=== PATIENT | male | born 1975 | race Caucasian/White ===

== ENCOUNTER → 2017-02-07 | Outpatient (CLI) | payer MEDICARE, MEDICAID ==
[~2017-02-07] MED LIST: MULTCAP11 PO; SELE100T6 PO; VITMTA PO; [UNRECOGNIZED DRUG - OTHER]; [UNRECOGNIZED DRUG - OTHER]; [UNRECOGNIZED DRUG - OTHER]
[2017-02-07 10:59] LABS: CREATININE CLEARANCE, URINE 145.6 ML/MIN (85-125); CREATININE, SERUM 0.8 MG/DL (0.6-1.3)
== END ==
LOC: M LAB 08:39
PROVIDERS: ATTEND Internal Medicine Advanced Heart Failure and Transplant Cardiology
DX: I50.9 Heart failure, unspecified (principal)

== ENCOUNTER 2017-03-05 19:47 | Emergency (ER) | payer MEDICARE, MEDICAID ==
[~2017-03-05] VITALS: Ht 190.5 cm; Wt 91.0 kg
[2017-03-05] MEDS ORDERED: [UNRECOGNIZED DRUG - OTHER] (20:04)
[2017-03-05] MEDS ORDERED: [UNRECOGNIZED DRUG - OTHER] (20:04)
[2017-03-05] MEDS ORDERED: MULTCAP11 PO (20:04)
[2017-03-05] MEDS ORDERED: SELE100T6 PO (20:04)
[2017-03-05] MEDS ORDERED: [UNRECOGNIZED DRUG - OTHER] (20:04)
[2017-03-05 21:09] LABS: BASO % 0.3 % (0.0-1.0); EOS # 0.1 10^3/uL (0.0-0.50); EOS % 1.9 % (0.0-3.0); IMMATURE GRANULOCYTE % 0.6 % (0-0); LYMPH # 0.3 10^3/uL (1.5-4.5); LYMPH % 3.7 % (24.0-44.0); MEAN CORPUSCULAR HEMOGLOBIN 22.1 pg (27.0-33.0); MEAN CORPUSCULAR HGB CONC 29.9 g/dl (32.0-36.5); MONO # 0.4 10^3/uL (0.0-0.8); NEUTROPHILS # 6.3 10^3/uL (1.8-7.7); NEUTROPHILS % 87.5 % (36.0-66.0); PLATELET COUNT, AUTOMATED 158 10^3/uL (150-450); WHITE BLOOD COUNT 7.2 10^3/uL (4.0-10.0)
[2017-03-05 21:11] LABS: ADD MORPHOLOGY? YES; INR 1.08; MEAN CORPUSCULAR VOLUME 73.9 fl (80.0-96.0)
[2017-03-05] MEDS ORDERED: ASPIRIN 81 MG CHEW TABLET PO ONE (21:15)
[2017-03-05 21:20] LABS: ALBUMIN 2.3 GM/DL (3.2-5.2); ALBUMIN/GLOBULIN RATIO 1.05 (1.00-1.93); ALKALINE PHOSPHATASE 91 U/L (45-117); ALT/SGPT 34 U/L (12-78); ANION GAP 6 MEQ/L (8-16); AST/SGOT 49 U/L (15-37); BILIRUBIN,DIRECT 0.1 MG/DL (0.0-0.2); BILIRUBIN,TOTAL 0.4 MG/DL (0.2-1.0); BLOOD UREA NITROGEN 16 MG/DL (7-18); CALCIUM LEVEL 9.8 MG/DL (8.5-10.1); CARBON DIOXIDE LEVEL 26 MEQ/L (21-32); CHLORIDE LEVEL 111 MEQ/L (98-107); CREATININE FOR GFR 0.78 MG/DL (0.70-1.30); GLOMERULAR FILTRATION RATE > 60.0 (>60); GLUCOSE, FASTING 99 MG/DL (70-105); POTASSIUM SERUM 3.8 MEQ/L (3.5-5.1); SODIUM LEVEL 143 MEQ/L (136-145); TOTAL PROTEIN 4.5 GM/DL (6.4-8.2)
[2017-03-05 21:52] LABS: MICROCYTOSIS 2+
--- NOTE | 2017-03-05 22:00 | REPUSA ---
CLINICAL HISTORY: CP. COMMENTS: There is no evidence of active pleural or pulmonary parenchymal abnormality. Pacemaker is noted in the right chest wall. Surgical clips are present in the anterior mediastinum. The cardiac silhouette is enlarged. The mediastinum and pulmonary vessels appear normal. Aorta is tor tuous. Degenerative changes are noted in the thoracic spine. IMPRESSION: No evidence of acute pulmonary pathology. Thank you for your kind referral of this patient.
[2017-03-05 22:04] LABS: FREE T4 1.38 NG/DL (0.76-1.46); MAGNESIUM LEVEL 1.9 MG/DL (1.8-2.4); PHOSPHORUS LEVEL 1.8 MG/DL (2.5-4.9)
[2017-03-05] MEDS ORDERED: VITMTA PO (23:32)
[2017-03-06 01:58] VITALS: BP 118/74
--- NOTE | 2017-03-06 03:03 | ECGEPIP ---
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
--- NOTE | 2017-03-06 03:05 | ECGEPIP ---
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
--- NOTE | 2017-03-06 05:29 | CR ---
DATE OF CONSULTATION: 03/06/2017 REFERRING PHYSICIANS: Dr. Odilon Horn and Dr. Newton Bain, emergency room provider. REASON FOR CONSULTATION: Chest pain. 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 Gomez at [facility], phone number [phone]. Initially presented to the emergency room with acute onset at 7 p.m. of chest pain, substernal, sharp, lasting 45 minutes, presented to the emergency department (ED). Electrocardiogram (EKG) shows paced rhythm. Emergency room provider, Dr. Bain, has discussed the case with the patient's human service worker at [place], Dr. Gomez, who would like the patient to be observed overnight with repeat cardiac enzymes, so if second set of cardiac enzymes increases, we will transfer the patient to [place]. If enzymes are normal, will reconsider in the morning to see what additional recommendation is needed. Second set of cardiac enzymes was done in the emergency room at 12:04 midnight. Subsequently, request was made by the emergency room provider to admit the patient overnight for further cardiac enzymes and telemetry monitoring. Subsequently, I have seen the patient, telling the patient that the emergency room provider has requested the patient to be admitted for observation. Upon mentioning of the fact of admission, the patient was strongly resistant, stating that he does not believe that [facility] is adequate to care of his condition and wanted me to call the patient's human service worker, Dr. Gomez, to confirm because the patient reported that Dr. Gomez is comfortable with him going home to followup with Dr. Gomez for repeat labs. Subsequently, Dr. Gomez with number above was contacted for the third time tonight. Upon mentioning that it was the patient who mentioned that Dr. Gomez would be comfortable with discharging the patient for further monitoring and repeat labs with Dr. Gomez as outpatient, Dr. Gomez disagreed, stating that this was not what was agreed upon earlier. It is his recommendation that the patient is monitored overnight. If cardiac enzymes increase, will recommend patient to be transferred to [facility]. If cardiac enzymes remain the same, he will decide in the morning as to what is the next course of action. Subsequently, confirmation of Dr. Gomez's recommendation was disclosed to the patient. Upon disclosure, the patient is disagreeable to the management, stating that he can monitor himself with his pacemaker at home. It is all electronic and automatic, and he does not want to stay here. Subsequently the patient wanted to leave against medical advice. He is aware of the potential for decompensation, acute myocardial infarction heart attack and possible by leaving against medical advice. If patient stays, we will be able to monitor him closely and repeat cardiac enzymes to see if he will need to be transferred or not. Unfortunately, the patient disagrees and would like to leave the hospital against medical advice. No physical examination was done because the patient would like to leave against medical advice. Case was discussed with Dr. Gomez and Dr. Odilon Horn and the emergency room provider. The patient subsequently left.
== END 2017-03-06 02:00 | disposition left against medical advice (07) ==
LOC: M ED 19:47 → EDBD 19:47 → EDUNIT# 19:47 → M ED 03-06 02:00
DX: R07.9 Chest pain, unspecified (principal); I50.9 Heart failure, unspecified; Z95.0 Presence of cardiac pacemaker; Q25.6 Stenosis of pulmonary artery; Z53.21 Procedure and treatment not carried out due to patient leaving prior to being seen by health care provider; Z79.899 Other long term (current) drug therapy; Z88.1 Allergy status to other antibiotic agents

== ENCOUNTER → 2017-03-06 | Outpatient (CLI) | payer MEDICARE, MEDICAID | LOC: M LAB 11:55 | PROVIDERS: ATTEND Internal Medicine Cardiovascular Disease | DX: I50.9 Heart failure, unspecified (principal) ==

== ENCOUNTER → 2017-08-27 | Outpatient (CLI) | payer MEDICARE, MEDICAID ==
[2017-08-27 18:07] LABS: ALKALINE PHOSPHATASE 50 U/L (45-117); ALT/SGPT 17 U/L (12-78); AST/SGOT 17 U/L (7-37); BILIRUBIN,TOTAL 0.4 MG/DL (0.2-1.0); CALCIUM LEVEL 9.3 MG/DL (8.5-10.1); CARBON DIOXIDE LEVEL 29 MEQ/L (21-32); CHLORIDE LEVEL 111 MEQ/L (98-107); CREATININE FOR GFR 0.82 MG/DL (0.70-1.30); GLUCOSE, FASTING 79 MG/DL (70-100); MAGNESIUM LEVEL 1.9 MG/DL (1.8-2.4); POTASSIUM SERUM 4.1 MEQ/L (3.5-5.1); SODIUM LEVEL 144 MEQ/L (136-145); TOTAL PROTEIN 4.4 GM/DL (6.4-8.2)
[2017-08-27 18:25] LABS: BLOOD UREA NITROGEN 15 MG/DL (7-18)
[2017-08-28 22:28] LABS: ALBUMIN/GLOBULIN RATIO 0.83 (1.00-1.93); ANION GAP 4 MEQ/L (8-16)
== END ==
LOC: M LAB 16:51
DX: I50.9 Heart failure, unspecified (principal); K90.89 Other intestinal malabsorption; Q20.5 Discordant atrioventricular connection
CPT/HCPCS: 83735

== ENCOUNTER → 2018-02-03 | Outpatient (CLI) | payer MEDICARE, MEDICAID ==
[2018-02-03 19:27] LABS: ANION GAP 7 MEQ/L (8-16); BLOOD UREA NITROGEN 25 MG/DL (7-18); CARBON DIOXIDE LEVEL 27 MEQ/L (21-32); CHLORIDE LEVEL 107 MEQ/L (98-107); CREATININE FOR GFR 0.99 MG/DL (0.70-1.30); GLOMERULAR FILTRATION RATE > 60.0 (>60); GLUCOSE, FASTING 84 MG/DL (70-100); POTASSIUM SERUM 4.9 MEQ/L (3.5-5.1); SODIUM LEVEL 141 MEQ/L (136-145)
== END ==
LOC: M LAB 16:47
DX: Z98.890 Other specified postprocedural states (principal)
CPT/HCPCS: 80048

== ENCOUNTER → 2018-04-30 | Outpatient (CLI) | payer MEDICARE, MEDICAID ==
[2018-04-30 15:11] LABS: ANION GAP 8 MEQ/L (8-16); BLOOD UREA NITROGEN 23 MG/DL (7-18); CALCIUM LEVEL 10.6 MG/DL (8.5-10.1); CARBON DIOXIDE LEVEL 28 MEQ/L (21-32); CHLORIDE LEVEL 104 MEQ/L (98-107); CREATININE FOR GFR 1.24 MG/DL (0.70-1.30); GLOMERULAR FILTRATION RATE > 60.0 (>60); GLUCOSE, FASTING 107 MG/DL (70-100); SODIUM LEVEL 140 MEQ/L (136-145)
== END ==
LOC: M LAB 14:19
DX: Z98.890 Other specified postprocedural states (principal)
CPT/HCPCS: 80048

== ENCOUNTER 2019-02-03 20:38 | Inpatient (IN) | payer MEDICARE, MEDICAID ==
[~2019-02-03] VITALS: Ht 190.5 cm; Wt 95.9 kg
[2019-02-03 21:44] LABS: VENOUS BASE EXCESS -1.7 (-2.0-2.0); VENOUS O2 SATURATION 90.1 % (60.0-80.0); VENOUS PARTIAL PRESSURE O2 55.8 mmHg (30.0-50.0); VENOUS PH 7.449 UNITS (7.330-7.430); VENOUS STANDARD HCO3 22.8 MEQ/L
[2019-02-03 21:47] LABS: BASO % 0.2 % (0.0-1.0); EOS % 0.1 % (0.0-3.0); HEMATOCRIT 46.7 % (42.0-52.0); LYMPH # 0.4 10^3/uL (1.5-5.0); LYMPH % 3.6 % (24.0-44.0); MEAN CORPUSCULAR HEMOGLOBIN 29.5 pg (27.0-33.0); MEAN CORPUSCULAR HGB CONC 34.3 g/dl (32.0-36.5); MONO # 0.6 10^3/uL (0.0-0.8); MONO % 5.4 % (0.0-5.0); NEUTROPHILS # 10.6 10^3/uL (1.5-8.5); NEUTROPHILS % 90.2 % (36.0-66.0); PLATELET COUNT, AUTOMATED 128 10^3/uL (150-450); RED BLOOD COUNT 5.43 10^6/uL (4.30-6.10); WHITE BLOOD COUNT 11.7 10^3/uL (4.0-10.0)
[2019-02-03] MEDS ORDERED: ACETAMINOPHEN TAB 650MG DOSE (2X325MG) PO ONE (22:15)
[2019-02-03 22:27] LABS: ALBUMIN 2.5 GM/DL (3.2-5.2); ALT/SGPT 25 U/L (12-78); BILIRUBIN,DIRECT 0.3 MG/DL (0.0-0.2); BILIRUBIN,TOTAL 0.9 MG/DL (0.2-1.0); BLOOD UREA NITROGEN 22 MG/DL (7-18); CARBON DIOXIDE LEVEL 23 MEQ/L (21-32); CHLORIDE LEVEL 107 MEQ/L (98-107); CK-MB VALUE MASS 1.1 NG/ML (<3.6); CPK CREATINE PHOSPHOKINASE 262 U/L (39-308); CREATININE FOR GFR 1.07 MG/DL (0.70-1.30); GLOMERULAR FILTRATION RATE > 60.0 (>60); GLUCOSE, FASTING 124 MG/DL (70-100); MB/CK RELATIVE INDEX 0.42 (< OR =4); NT-PRO BNP 463 PG/ML (<125); POTASSIUM SERUM 3.9 MEQ/L (3.5-5.1); SODIUM LEVEL 140 MEQ/L (136-145); THYROXINE (T4) 8.8 UG/DL (4.5-12.0); TROPONIN I 0.17 NG/ML (< 0.10)
[2019-02-03] MEDS ORDERED: ACETAMINOPHEN 325 MG TAB As Ordered ONE (22:27)
[2019-02-04] VITALS (15 sets, daily range): BP systolic 114–131; BP diastolic 55–69
[2019-02-04] MEDS ORDERED: cefTRIAXone SOD 1 GM in D5W MINI-BAG PLUS 50 ML IV ONE (00:15)
[2019-02-04] MEDS ORDERED: AZITHROMYCIN INJ 500 MG, VIAL MATE ADAPTER 1 EACH in D5W 250 ML IV ONE (00:15)
[2019-02-04] MEDS ORDERED: IBUPROFEN 600 MG TAB PO ONE (00:15)
[2019-02-04] MEDS ORDERED: ACETAMINOPHEN TAB 650MG DOSE (2X325MG) PO PRN (02:00)
--- NOTE | 2019-02-04 02:01 | HPEPDOC ---
General Date of Admission 02/04/19 Date of Service: Feb 04, 2019 Attending Physician: FELI SHORT DO Chief Complaint The patient is a 43-year-old male admitted with a reason for visit of Vomiting. History of Present Illness Patient is 44 years old male with past mental history of congenital heart diseases, pacemaker presented to the hospital with history of cough, fever. Patient stated for past 2 days he has been having increase weakness, shortness of breath and fever up to 102. In emergency room patient was found to have a right lung middle opacity, left lobe opacities on the chest x-ray. On the admission his fever was 103.5, leukocytes count 11.5. Troponin was elevated to 0.17. Patient denied any chest pain, EKG showed paced rhythm. Home Medications Scheduled Losartan Potassium (Losartan Potassium) 25 Mg Tablet, 25 MG PO DAILY, (Reported) Milk Thistle Seed Extract (Milk Thistle) 200 Mg Capsule, 600 MG PO DAILY, (Reported) Multivitamins (Thera M Plus Tablet) 1 Tab Tab, 1 TAB PO DAILY, (Reported) Selenium (Selenium) 100 Mcg Tablet, 300 MCG PO DAILY, (Reported) Spironolactone (Spironolactone) 100 Mg Tablet, 50 MG PO DAILY, (Reported) Torsemide (Torsemide) 20 Mg Tablet, 20 MG PO DAILY, (Reported) Allergies Coded Allergies: vancomycin (Verified Adverse Reaction, Intermediate, Red Man Syndrome, 04/13) Past Medical History Medical History Congenital heart diseases with single ventricle, pulmonary stenosis, pacemaker with epicardial leads Surgical History Heart surgery in his childhood Family History Mother has osteoporosis Social History * Smoker: Denies Alcohol: Denies Drugs: denies A-FIB/CHADSVASC A-FIB History Current/History of A-Fib/PAF?: No Current PO Anticoag Therapy: No Review of Systems Constitutional: Reports: Chills, Fever, Malaise, Weakness, Fatigue Eyes: Denies: Pain, Vision change ENT: Denies: Head Aches, Ear Pain Skin: Denies: Rash, Lesions Pulmonary: Reports: Dyspnea, Cough, Pleuritic Chest Pain Cardiovascular: Denies: Chest Pain, Palpitations, Orthopnea Gastrointestinal: Denies: Nausea, Vomiting, Abdominal Pain Genitourinary: Denies: Dysuria, Frequency Hematologic: Denies: Bruising Endocrine: Denies: Polyphagia Musculoskeletal: Denies: Neck Pain, Back Pain Neurological: Denies: Weakness, Numbness Psych: Reports: Mood Normal Physical Examination General Exam: Positive: Alert, Cooperative Eye Exam: Positive: PERRLA, Conjunctiva & lids normal ENT Exam: Positive: Atraumatic Neck Exam: Positive: Supple; Negative: JVD Chest Exam: Positive: Diminished Heart Exam: Positive: Other ([id number]&[id number]&DDsrcS eries=[id number]&NGnizOjsxwvw=[id number]&DDSopClassUid=[id number]&DDFrameOfRef=&culture=en-[place]) Abdomen Exam: Positive: Normal bowel sounds Extremity Exam: Negative: Clubbing, Cyanosis Skin Exam: Negative: Nl turgor and temperature Neuro Exam: Positive: Cranial Nerves 3-12 NL Psych Exam: Positive: Mental status NL Vital Signs Vital Signs Date Time Temp Pulse Resp B/P (MAP) Pulse Ox O2 Delivery O2 Flow Rate FiO2 02/04/19 01:08 101.2 84 20 124/57 (79) 94 Nasal Cannula 3.0 Laboratory Data Labs 24H Laboratory Tests 2 02/03/19 21:31: Immature Granulocyte % (Auto) 0.5, White Blood Count 11.7H, Red Blood Count 5.43, Hemoglobin 16.0, Hematocrit 46.7, Mean Corpuscular Volume 86.0, Mean Corpuscular Hemoglobin 29.5, Mean Corpuscular Hemoglobin Concent 34.3, Red Cell Distribution Width 13.6, Platelet Count 128L, Neutrophils (%) (Auto) 90.2H, Lymphocytes (%) (Auto) 3.6L, Monocytes (%) (Auto) 5.4H, Eosinophils (%) (Auto) 0.1, Basophils (%) (Auto) 0.2, Neutrophils # (Auto) 10.6H, Lymphocytes # (Auto) 0.4L, Monocytes # (Auto) 0.6, Eosinophils # (Auto) 0.0, Basophils # (Auto) 0.0, Nucleated Red Blood Cells % (auto) 0.0, Blood Gas Bicarbonate Standard 22.8, Venous Blood pH 7.449H, Venous Blood Partial Pressure CO2 31.0L, Venous Blood Partial Pressure O2 55.8H, Venous Blood Total Carbon Dioxide 22.0L, Venous Blood HCO3 21.0L, Venous Blood Oxygen Saturation 90.1H, Venous Blood Base Excess -1.7, Lactic Acid Level 0.9 02/03/19 21:32: Anion Gap 10, Glomerular Filtration Rate > 60.0, Calcium Level 10.0, Aspartate Amino Transf (AST/SGOT) 22, Alanine Aminotransferase (ALT/SGPT) 25, Alkaline Phosphatase 58, Total Bilirubin 0.9, Direct Bilirubin 0.3H, Total Creatine Kinase 262, Creatine Kinase MB 1.1, Creatine Kinase MB Relative Index 0.42, Troponin I 0.17H, OX-Aro-T-Type Natriuretic Peptide 463H, Total Protein 5.0L, Albumin 2.5L, Albumin/Globulin Ratio 1.00, Thyroid Stimulating Hormone (TSH) 1.610, Thyroxine (T4) 8.8 02/03/19 22:37: Urine Color YELLOW, Urine Appearance HAZY, Urine pH 5.0, Urine Specific [place] 1.018, Urine Protein NEGATIVE, Urine Glucose (UA) NEGATIVE, Urine Ketones 1+H, Urine Blood 1+H, Urine Nitrite NEGATIVE, Urine Bilirubin NEGATIVE, Urine Urobilinogen 0.2, Urine Leukocyte Esterase NEGATIVE, Urine WBC (Auto) 1, Urine RBC (Auto) 1, Urine Hyaline Casts (Auto) 0, Urine Bacteria (Auto) NEGATIVE, Urine Squamous Epithelial Cells 0, Urine Mucus (Auto) SMALL, Urine Sperm (Auto) CBC/BMP Laboratory Tests 02/03/19 21:31 Red Blood Count 5.43, Mean Corpuscular Volume 86.0, Mean Corpuscular Hemoglobin 29.5, Mean Corpuscular Hemoglobin Concent 34.3, Red Cell Distribution Width 13.6, Neutrophils (%) (Auto) 90.2 H, Lymphocytes (%) (Auto) 3.6 L, Monocytes (%) (Auto) 5.4 H, Eosinophils (%) (Auto) 0.1, Basophils (%) (Auto) 0.2, Neutrophils # (Auto) 10.6 H, Lymphocytes # (Auto) 0.4 L, Monocytes # (Auto) 0.6, Eosinophils # (Auto) 0.0, Basophils # (Auto) 0.0 02/03/19 21:32 Microbiology Microbiology 02/03/19 Blood Culture, Received Pending 02/03/19 Blood Culture, Received Pending Assessment/Plan Patient is 43 years old male with past mental history of congenital heart diseases, pacemaker presented to the hospital with history of cough, fever. Patient stated for past 2 days he has been having increase weakness, shortness of breath and fever up to 102. In emergency room patient was found to have a right lung middle opacity, left lobe opacities on the chest x-ray. On the admission his fever was 103.5, leukocytes count 11.5. Troponin was elevated to 0.17. Patient denied any chest pain, EKG showed paced rhythm. Problems (1) Pneumonia Status: Acute Problem Text: Most likely a community acquired pneumonia Ceftriaxone IV, azithromycin IV IV fluid Blood culture, sputum culture Pro calcitonin (2) Elevated troponin Problem Text: Most likely demand ischemia. however patient has complicated Hist ory Continue to monitor troponin series EKG showed paced rhythm, patient denies any chest pain Plan / VTE VTE Prophylaxis Ordered?: Yes FELI SHORT DO Feb 04, 2019 02:01
[2019-02-04] MEDS ORDERED: SELE100T PO (02:09)
[2019-02-04] MEDS ORDERED: SPIR100T3 PO (02:09)
[2019-02-04] MEDS ORDERED: RA M200C4 PO (02:09)
[2019-02-04] MEDS ORDERED: LOSA25TA14 PO (02:09)
[2019-02-04] MEDS ORDERED: TORS20TA2 PO (02:09)
--- NOTE | 2019-02-04 03:01 | REPVR ---
EXAM: XR Chest, 1 View EXAM DATE/TIME: 02/03/2019 9:24 PM CLINICAL HISTORY: 43 years old, male; Cough and dyspnea; Additional info: Dyspnea/cough TECHNIQUE: Imaging protocol: XR of the chest Views: 1 view. COMPARISON: CR Chest, 2 view PA, Lat 03/05/2017 9:20 PM FINDINGS: LUNGS and PLEURAL SPACE: The right mid lung field is obscured by pacing device. Lung volumes are low. There is hazy ill-defined opacity at the left lung base, new compared to the prior exam. This could be correlated for infiltrate/pneumonia and/or atelectasis. Clinical correlation and followup imaging is advised, to confirm resolution. Consider proper PA and lateral views for followup if possible. Mild atelectasis and crowding of vasculature seen at the right lung base. No overt pulmonary edema. No evidence of pneumothorax. Small amount of pleural fluid at the left lung base cannot be excluded. MEDIASTINUM: There is no mediastinal shift or widening. CARDIAC SILHOUETTE: Cardiac size is mildly enlarged. BONY THORAX: No acute findings are seen. OTHER: Right-sided pacer device appear similar to the prior exam. IMPRESSION: Newly developed opacity at the left lung base, differential and recommendations discussed above. Other findings discussed above in detail. Electronically signed by: Audi Rabago On 02/04/2019 03:01:14 AM
[2019-02-04 03:06] LABS: CK-MB VALUE MASS 1.2 NG/ML (<3.6); MB/CK RELATIVE INDEX 0.38 (< OR =4); TROPONIN I 0.17 NG/ML (< 0.10)
--- NOTE | 2019-02-04 08:15 | ECGEPIP ---
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
[2019-02-04] MEDS: HEPARIN SOD (PORCINE) 5000 UNITS/ML VIAL SC SCH ×2 (08:45→19:35)
[2019-02-04] MEDS ORDERED: ONDANSETRON 4MG/2ML VIAL (J2405) IV PRN (12:00)
[2019-02-04] MEDS ORDERED: ACETAMINOPHEN 650 MG SUPP PR PRN (12:00)
[2019-02-04] MEDS: ACETAMINOPHEN 500 MG TAB PO PRN ×2 (13:42→21:46)
[2019-02-04] MEDS: cefTRIAXone SOD 1 GM in D5W MINI-BAG PLUS 50 ML IV SCH (23:51)
[2019-02-05] VITALS (9 sets, daily range): BP systolic 107–157; BP diastolic 59–81
[2019-02-05] MEDS ORDERED: AZITHROMYCIN INJ 500 MG, VIAL MATE ADAPTER 1 EACH in D5W 250 ML IV SCH (02:00)
[2019-02-05 05:52] LABS: ALBUMIN 2.2 GM/DL (3.2-5.2); ALT/SGPT 32 U/L (12-78); BILIRUBIN,TOTAL 0.8 MG/DL (0.2-1.0); BLOOD UREA NITROGEN 14 MG/DL (7-18); CALCIUM LEVEL 10.4 MG/DL (8.5-10.1); CARBON DIOXIDE LEVEL 28 MEQ/L (21-32); CHLORIDE LEVEL 107 MEQ/L (98-107); CREATININE FOR GFR 0.96 MG/DL (0.70-1.30); GLOMERULAR FILTRATION RATE > 60.0 (>60); GLUCOSE, FASTING 95 MG/DL (70-100); POTASSIUM SERUM 3.9 MEQ/L (3.5-5.1); SODIUM LEVEL 141 MEQ/L (136-145); TOTAL PROTEIN 5.7 GM/DL (6.4-8.2)
[2019-02-05 07:47] LABS: BASO % 0.3 % (0.0-1.0); EOS # 0.1 10^3/uL (0.0-0.5); EOS % 1.2 % (0.0-3.0); HEMATOCRIT 48.3 % (42.0-52.0); HEMOGLOBIN 15.6 g/dl (13.5-17.5); LYMPH # 0.7 10^3/uL (1.5-5.0); LYMPH % 10.4 % (24.0-44.0); MEAN CORPUSCULAR HEMOGLOBIN 28.8 pg (27.0-33.0); MEAN CORPUSCULAR HGB CONC 32.3 g/dl (32.0-36.5); MEAN CORPUSCULAR VOLUME 89.3 fl (80.0-96.0); MONO # 0.8 10^3/uL (0.0-0.8); MONO % 11.6 % (0.0-5.0); NEUTROPHILS # 5.2 10^3/uL (1.5-8.5); NEUTROPHILS % 76.1 % (36.0-66.0); PLATELET COUNT, AUTOMATED 124 10^3/uL (150-450); RED BLOOD COUNT 5.41 10^6/uL (4.30-6.10); WHITE BLOOD COUNT 6.8 10^3/uL (4.0-10.0)
[2019-02-05] MEDS: ACETAMINOPHEN 500 MG TAB PO PRN (08:11)
[2019-02-05] MEDS: HEPARIN SOD (PORCINE) 5000 UNITS/ML VIAL SC SCH ×2 (08:42→21:42)
[2019-02-05] MEDS: CLOTRIMAZOLE 1% TOPICAL CREAM 30GM TOP SCH ×2 (09:00→21:43)
--- NOTE | 2019-02-05 09:25 | REP ---
Right lower extremity Duplex Doppler venous ultrasound: Real time compression and duplex Doppler interrogation of the right lower extremity deep venous system is performed. The right common femoral, superficial femoral and popliteal veins are fully compressible with transducer pressure and demonstrate normal spontaneous and phasic flow, without evidence of deep venous thrombosis. Impression: No evidence of deep venous thrombosis of the right lower extremity femoral popliteal venous system. Electronically Signed by Jonas Holt MD 02/05/2019 09:16 A
--- NOTE | 2019-02-05 12:20 | IPNPDOC ---
Subjective Date Seen The patient was seen on 02/05/19. Subjective Chief Complaint/HPI No further spikes of fever overnight, No nausea or dry heaves, feeling better, ate breakfast and dinner. His right leg is red and warm to touch but not painful. No cough or phlegm, no abdominal pain or swelling. Objective Physical Examination General Exam: Positive: Alert, Cooperative, No Acute Distress Eye Exam: Positive: PERRLA, Conjunctiva & lids normal ENT Exam: Positive: Atraumatic Neck Exam: Positive: Supple; Negative: JVD Chest Exam: Positive: Clear to auscultation; Negative: Rales, Rhonchi, Wheezing Heart Exam: Positive: Rate Normal, Regular Rhythm, Other; Negative: Gallops, Murmurs, Rubs Abdomen Exam: Positive: Normal bowel sounds, Soft; Negative: Tenderness Extremity Exam: Negative: Clubbing, Cyanosis, Edema Skin Exam: Positive: Other skin issue (right leg warm and erythematous) Neuro Exam: Positive: Normal Gait, Normal Speech, Cranial Nerves 3-12 NL Psych Exam: Positive: Mental status NL, Mood NL, Oriented x 3 Assessment /Plan Assessment Patient is 44 years old male with past mental history of congenital heart diseases 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 In emergency room patient was found to have a right middle lobe opacity, left lobe opacities on the chest x-ray. He was admitted for Pneumonia Community acquired pneumonia blood culture from 02/03 Strep group b will continue ceftriaxone and dc azithromycin ID consulted for bacterimia in a patient with corrected congenital heart disease Will get Echo repeat cultures sent Corrected congenital heart disease spoke with his court security officer with whom the pateint primarily follows Dr Justen Moser at [phone] As per him patient has a single ventricle and had Fontan procedure. He agreed with getting a new ECHO and he will be sending over the last visit notes He was concerned whether patient had any ascites or not as these patient as per him are prone to developing SBP also. However pateints abdominal exam is benign and it does not look like he has any ascites at this time. No signs of CHF or fluid overload. will hold torsemide and spironolactone for now Hypertension will hold losartan as bp is well controlled Elevated troponins flat pattern possibly from his chronic cardiac issues. Plan/VTE VTE Prophylaxis Ordered?: Yes VS, I&O, 24H, Fishbone Vital Signs/I&O Vital Signs Date Time Temp Pulse Resp B/P (MAP) Pulse Ox O2 Delivery O2 Flow Rate FiO2 02/05/19 08:00 99.0 78 16 129/71 (90) 95 02/04/19 13:00 2.0 02/04/19 02:00 Nasal Cannula I&O- Last 24 Hours up to 6 AM 02/05/19 06:00 Intake Total 2345 ml Output Total 1650 ml Balance 695 ml Laboratory Data 24H LABS Laboratory Tests 2 02/05/19 04:52: Immature Granulocyte % (Auto) 0.4, White Blood Count 6.8, Red Blood Count 5.41, Hemoglobin 15.6, Hematocrit 48.3, Mean Corpuscular Volume 89.3, Mean Corpuscular Hemoglobin 28.8, Mean Corpuscular Hemoglobin Concent 32.3, Red Cell Distribution Width 14.3, Platelet Count 124L, Neutrophils (%) (Auto) 76.1H, Lymphocytes (%) (Auto) 10.4L, Monocytes (%) (Auto) 11.6H, Eosinophils (%) (Auto) 1.2, Basophils (%) (Auto) 0.3, Neutrophils # (Auto) 5.2, Lymphocytes # (Auto) 0.7L, Monocytes # (Auto) 0.8, Eosinophils # (Auto) 0.1, Basophils # (Auto) 0.0, Nucleated Red Blood Cells % (auto) 0.0 02/05/19 04:55: Anion Gap 6L, Glomerular Filtration Rate > 60.0, Blood Urea Nitrogen 14, Creatinine 0.96, Sodium Level 141, Potassium Level 3.9, Chloride Level 107, Carbon Dioxide Level 28, Calcium Level 10.4H, Aspartate Amino Transf (AST/SGOT) 27, Alanine Aminotransferase (ALT/SGPT) 32, Alkaline Phosphatase 58, Total Bili jamison 0.8, Total Protein 5.7L, Albumin 2.2L, Albumin/Globulin Ratio 0.63L CBC/BMP Laboratory Tests 02/05/19 04:52 Red Blood Count 5.41, Mean Corpuscular Volume 89.3, Mean Corpuscular Hemoglobin 28.8, Mean Corpuscular Hemoglobin Concent 32.3, Red Cell Distribution Width 14.3, Neutrophils (%) (Auto) 76.1 H, Lymphocytes (%) (Auto) 10.4 L, Monocytes (%) (Auto) 11.6 H, Eosinophils (%) (Auto) 1.2, Basophils (%) (Auto) 0.3, Neutrophils # (Auto) 5.2, Lymphocytes # (Auto) 0.7 L, Monocytes # (Auto) 0.8, Eosinophils # (Auto) 0.1, Basophils # (Auto) 0.0 02/05/19 04:55 Calcium Level 10.4 H, Aspartate Amino Transf (AST/SGOT) 27, Alanine Aminotransferase (ALT/SGPT) 32, Alkaline Phosphatase 58, Total Bilirubin 0.8, Total Protein 5.7 L, Albumin 2.2 L Microbiology Microbiology 02/04/19 Blood Culture, Received Pending 02/04/19 Blood Culture, Received Pending 02/03/19 Blood Culture - Preliminary, Resulted Strep Agalactiae Group B 02/03/19 Blood Culture - Preliminary, Resulted Strep Agalactiae Group B PARVIZ MEADOWS MD Feb 05, 2019 12:20
[2019-02-05] MEDS ORDERED: SLF 3 ML SYR IV PRN (13:45)
[2019-02-05] MEDS: SLF 3 ML SYR IV SCH ×2 (14:00→21:43)
[2019-02-05] MEDS: cefTRIAXone SOD 1 GM in D5W MINI-BAG PLUS 50 ML IV SCH (23:55)
[2019-02-06] VITALS (7 sets, daily range): BP systolic 112–128; BP diastolic 55–66
[2019-02-06 05:18] LABS: BASO % 0.5 % (0.0-1.0); EOS # 0.2 10^3/uL (0.0-0.5); EOS % 3.7 % (0.0-3.0); HEMATOCRIT 41.9 % (42.0-52.0); HEMOGLOBIN 13.8 g/dl (13.5-17.5); LYMPH # 0.6 10^3/uL (1.5-5.0); LYMPH % 14.5 % (24.0-44.0); MEAN CORPUSCULAR HEMOGLOBIN 28.6 pg (27.0-33.0); MEAN CORPUSCULAR HGB CONC 32.9 g/dl (32.0-36.5); MEAN CORPUSCULAR VOLUME 86.9 fl (80.0-96.0); MONO # 0.3 10^3/uL (0.0-0.8); MONO % 7.8 % (0.0-5.0); NEUTROPHILS # 3.2 10^3/uL (1.5-8.5); NEUTROPHILS % 73.3 % (36.0-66.0); PLATELET COUNT, AUTOMATED 127 10^3/uL (150-450); RED BLOOD COUNT 4.82 10^6/uL (4.30-6.10); WHITE BLOOD COUNT 4.4 10^3/uL (4.0-10.0)
[2019-02-06 05:27] LABS: BLOOD UREA NITROGEN 14 MG/DL (7-18); CALCIUM LEVEL 9.8 MG/DL (8.5-10.1); CARBON DIOXIDE LEVEL 25 MEQ/L (21-32); CHLORIDE LEVEL 110 MEQ/L (98-107); CREATININE FOR GFR 0.82 MG/DL (0.70-1.30); GLOMERULAR FILTRATION RATE > 60.0 (>60); GLUCOSE, FASTING 89 MG/DL (70-100); POTASSIUM SERUM 4.1 MEQ/L (3.5-5.1); SODIUM LEVEL 141 MEQ/L (136-145)
[2019-02-06] MEDS: HEPARIN SOD (PORCINE) 5000 UNITS/ML VIAL SC SCH ×2 (10:04→20:34)
[2019-02-06] MEDS: CLOTRIMAZOLE 1% TOPICAL CREAM 30GM TOP SCH ×2 (10:04→20:34)
--- NOTE | 2019-02-06 10:43 | CR ---
DATE OF CONSULTATION: 02/05/2019 CONSULTING PHYSICIAN: Dr. Milvia Castaneda REASON FOR CONSULTATION: Gram positive bacteremia times two. 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 He states that he woke up the morning of 02/02 and he noticed that he was not feeling well, such as he was having nausea and nonbloody bilious vomiting, progressed to dry heaving. He denies having any abdominal pain, but did admit to having subjective fevers. He states that he had a T-max of 105 which prompted him to go to the ER via ambulance for further evaluation. He also admits for the last couple of days he has had generalized malaise and fatigue. He does admit to having a dry cough that is not new in nature. He denies any shortness of breath or trouble breathing. He does admit to having some right lower extremity discomfort. He states that his right leg is a little more sensitive to touch, especially near the groin area. He denies having any swelling or any trauma to the area. PAST MEDICAL HISTORY: 1. 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 2. Epicardial pacemaker placement. 3. Congenital heart failure. 4. Complete heart block, completely paced. 5. Blood pressure. SURGICAL HISTORY: 1. Fontan procedure for his congenital heart disease. FAMILY HISTORY: Noncontributory. Mother has osteoporosis. SOCIAL HISTORY: Patient denies smoking, alcohol or drug use. 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 He has one cat at home. REVIEW OF SYSTEMS: CONSTITUTIONAL: Reports fevers, chills, malaise, weakness and fatigue. HEENT: Denies headaches, vision changes, blurry vision, post nasal discharge, sore throat. HEART: Denies palpitations, chest pain, orthopnea. PULMONARY: Denies dyspnea and pleuritic chest pain. Denies cough. GASTROINTESTINAL (GI): Admits to nausea, vomiting, but no abdominal pain. GENITOURINARY (): Generalized dysuria. INTEGUMENTARY: Admits to "sensitive skin of the right lower extremity." Denies any skin breakdown in the lower extremities. Admits to cat scratches on the left upper extremity and on the back. MUSCULOSKELETAL: Denies any back pain or any joint pain. HOME MEDICATIONS: - losartan 25 mg - milk thistle 600 mg - multivitamin one tablet - selenium 300 mcg - spironolactone 50 mg - furosemide 20 mg ALLERGIES: 1. VANCOMYCIN - rosy syndrome. PHYSICAL EXAMINATION: VITALS: Temperature 98.5, pulse 80, respirations 18, blood pressure 128/67 (87), pulse oximetry 93% on room air. GENERAL: This is a very pleasant 43-year-old male sitting up in the chair, does not appear in acute distress, appropriately answering questions, alert and oriented times three. HEENT: Atraumatic, normocephalic. Pupils are equal, round and reactive. Fair dentition. No lymphadenopathy. No jugular venous distention (JVD) noted. CARDIOVASCULAR: Regular rate and rhythm, no audible murmurs, rubs or gallops. Pacemaker can be appreciated at the right chest wall with multiple old surgical scars, but no tenderness on palpation. LUNGS: Clear to auscultation bilaterally. No audible wheezing, rhonchi or rales. ABDOMEN: Positive bowel sounds in all four quadrants, nontender, nondistended. No hepatomegaly or splenomegaly. LOWER EXTREMITIES: Erythema appreciated on the right leg on the shins as well as the right upper thigh. Tenderness on palpation of the right inguinal groin with positive unguinal lymphadenopathy. No obvious skin breakdown noted. Very minimal pitting edema bilaterally up to the ankles. Left lower extremity benign. No skin breakdown. No skin changes. No erythema or tenderness noted. 2+ pedal pulses bilaterally. Athlete's foot dry skin noted at the base of the heels bilaterally. LABORATORIES: WBC 6.8, hemoglobin 15.6, hematocrit 48.3, platelets 124. Chemistries: Sodium 141, potassium 3.9, chloride 107, carbon dioxide 28, anion gap 6, BUN 14, creatinine 0.96, fasting glucose 95, AST 27, ALT 32, alkaline phosphatase 58, procalcitonin 3.60. MICROBIOLOGY: Blood cultures times two positive for Group B Streptococcus (GBS) agalactiae. Repeat blood cultures on 02/04 negative for growth for 24 hours. IMAGING: Vascular ultrasound of the right lower extremity no evidence of deep vein thrombosis (DVT) of the right lower extremity femoral-popliteal venous system. ANTIBIOTICS: - azithromycin 600 mg every 24 hours - ceftriaxone 1 gram every 24 hours - start date 02/04 at midnight. ASSESSMENT/PLAN: This is a 43-year-old male with a pertinent past medical history of congenital heart disease with multiple surgeries who presented with fevers, malaise and weakness. He then developed erythema and swelling of RLE, the patient has erysipelas of the right lower extremity secondary to Group B Streptococcus (GBS) agalactiae. He is currently on ceftriaxone and azithromycin. Recommendations include to discontinue the azithromycin and continue with the ceftriaxone for the Group B Streptococcus bacteremia. Will deescalate antibiotics pending blood culture sensitivities. Echocardiogram is pending but the patient does have pacemaker, which puts him at a higher risk for endocarditis but unlikely with GBS The patient also has athlete's foot bilaterally at the heels. We also recommend placing Lotrimin cream at the heels and the web of the toes bilaterally. Will continue to monitor the patient while he is admitted. HARVINDER
--- NOTE | 2019-02-06 12:39 | IPNPDOC ---
Subjective Date Seen The patient was seen on 02/06/19. Subjective Chief Complaint/HPI Feeling much better today, No fever or chills, his redness of the leg has also resolved, he does say his urine is a little dark and his legs are swelling up. No abdominal pain, nausea or vomiting or diarrhea, no abdominal distension. Objective Physical Examination General Exam: Positive: Alert, Cooperative, No Acute Distress Eye Exam: Positive: PERRLA, Conjunctiva & lids normal ENT Exam: Positive: Atraumatic Neck Exam: Positive: Supple; Negative: JVD Chest Exam: Positive: Clear to auscultation; Negative: Rales, Rhonchi, Wheezing Heart Exam: Positive: Rate Normal, Regular Rhythm, Other; Negative: Gallops, Murmurs, Rubs Abdomen Exam: Positive: Normal bowel sounds, Soft; Negative: Tenderness Extremity Exam: Positive: Edema; Negative: Clubbing, Cyanosis Neuro Exam: Positive: Normal Gait, Normal Speech, Cranial Nerves 3-12 NL Psych Exam: Positive: Mental status NL, Mood NL, Oriented x 3 Assessment /Plan Assessment Patient is 44 years old male with past mental history of congenital heart diseases 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 In emergency room patient was found to have a right middle lobe opacity, left lobe opacities on the chest x-ray. He was admitted for Pneumonia Community acquired pneumonia blood culture from 02/03 Strep group b will continue ceftriaxone ID consulted for bacterimia in a patient with corrected congenital heart disease Echo sent to [facility], [place] agriculture laboratory technician for read. Disc has also been mailed to his own agriculture laboratory technician group in [place]. repeat cultures negative Corrected congenital heart disease with chronic CHF spoke with his agriculture laboratory technician with whom the patient primarily follows Dr Justen Moser at [phone] As per him patient has a single ventricle and had Fontan procedure. He agreed with getting a new ECHO and he will be sending over the last visit notes He was concerned whether patient had any ascites or not as these patient as per him are prone to developing SBP also. However patient's abdominal exam is benign and it does not look like he has any ascites at this time. patient is starting to build up fluids will restart torsemide and spironolactone and losartan. CHF awaiting for echo read will restart torsemide, spironolactone and losartan. Elevated troponins flat pattern possibly from his chronic cardiac issues and chronic heart failure Plan/VTE VTE Prophylaxis Ordered?: Yes VS, I&O, 24H, Fishbone Vital Signs/I&O Vital Signs Date Time Temp Pulse Resp B/P (MAP) Pulse Ox O2 Delivery O2 Flow Rate FiO2 02/06/19 11:38 98.6 58 18 127/58 (81) 93 02/04/19 13:00 2.0 02/04/19 02:00 Nasal Cannula I&O- Last 24 Hours up to 6 AM 02/06/19 06:00 Intake Total 200 ml Output Total 1200 ml Balance -1000 ml Laboratory Data 24H LABS Laboratory Tests 2 02/06/19 04:53: Immature Granulocyte % (Auto) 0.2, White Blood Count 4.4, Red Blood Count 4.82, Hemoglobin 13.8, Hematocrit 41.9L, Mean Corpuscular Volume 86.9, Mean Corpuscular Hemoglobin 28.6, Mean Corpuscular Hemoglobin Concent 32.9, Red Cell Distribution Width 13.8, Platelet Count 127L, Neutrophils (%) (Auto) 73.3H, Lymphocytes (%) (Auto) 14.5L, Monocytes (%) (Auto) 7.8H, Eosinophils (%) (Auto) 3.7H, Basophils (%) (Auto) 0.5, Neutrophils # (Auto) 3.2, Lymphocytes # (Auto) 0.6L, Monocytes # (Auto) 0.3, Eosinophils # (Auto) 0.2, Basophils # (Auto) 0.0, Nucleated Red Blood Cells % (auto) 0.0, Anion Gap 6L, Glomerular Filtration Rate > 60.0, Blood Urea Nitrogen 14, Creatinine 0.82, Sodium Level 141, Potassium Level 4.1, Chloride Level 110H, Carbon Dioxide Level 25, Calcium Level 9.8 CBC/BMP Laboratory Tests 02/06/19 04:53 Red Blood Count 4.82, Mean Corpuscular Volume 86.9, Mean Corpuscular Hemoglobin 28.6, Mean Corpuscular Hemoglobin Concent 32.9, Red Cell Distribution Width 13.8, Neutrophils (%) (Auto) 73.3 H, Lymphocytes (%) (Auto) 14.5 L, Monocytes (%) (Auto) 7.8 H, Eosinophils (%) (Auto) 3.7 H, Basophils (%) (Auto) 0.5, Neutrophils # (Auto) 3.2, Lymphocytes # (Auto) 0.6 L, Monocytes # (Auto) 0.3, Eosinophils # (Auto) 0.2, Basophils # (Auto) 0.0, Calcium Level 9.8 Microbiology Microbiology 02/04/19 Blood Culture - Preliminary, Resulted No growth after 24 hours . All specim... 02/04/19 Blood Culture - Preliminary, Resulted No growth after 24 hours . All specim... 02/03/19 Blood Culture - Final, Complete Strep Agalactiae Group B 02/03/19 Blood Culture - Final, Complete Strep Agalactiae Group B PARVIZ MEADOWS MD Feb 06, 2019 12:39
[2019-02-06] MEDS: SLF 3 ML SYR IV SCH ×3 (14:00→20:34)
[2019-02-06] MEDS: SPIRONOLACTONE 50 MG TAB PO SCH (14:07)
[2019-02-06] MEDS: TORSEMIDE 20 MG TAB PO SCH (14:08)
[2019-02-06] MEDS: LOSARTAN 25 MG TAB PO SCH (14:08)
[2019-02-06] MEDS ORDERED: cefTRIAXone SOD 1 GM in D5W MINI-BAG PLUS 50 ML IV SCH (18:00)
[2019-02-07] VITALS: BP 150/56
[2019-02-07 04:00] VITALS: BP 117/64
[2019-02-07 04:47] LABS: BASO % 0.4 % (0.0-1.0); EOS # 0.3 10^3/uL (0.0-0.5); EOS % 6.7 % (0.0-3.0); HEMATOCRIT 44.7 % (42.0-52.0); HEMOGLOBIN 14.6 g/dl (13.5-17.5); LYMPH # 0.9 10^3/uL (1.5-5.0); LYMPH % 18.2 % (24.0-44.0); MEAN CORPUSCULAR HEMOGLOBIN 28.6 pg (27.0-33.0); MEAN CORPUSCULAR HGB CONC 32.7 g/dl (32.0-36.5); MEAN CORPUSCULAR VOLUME 87.6 fl (80.0-96.0); MONO # 0.3 10^3/uL (0.0-0.8); MONO % 5.7 % (0.0-5.0); NEUTROPHILS # 3.3 10^3/uL (1.5-8.5); NEUTROPHILS % 68.6 % (36.0-66.0); PLATELET COUNT, AUTOMATED 133 10^3/uL (150-450); WHITE BLOOD COUNT 4.8 10^3/uL (4.0-10.0)
[2019-02-07 05:19] LABS: BLOOD UREA NITROGEN 13 MG/DL (7-18); CALCIUM LEVEL 9.9 MG/DL (8.5-10.1); CARBON DIOXIDE LEVEL 27 MEQ/L (21-32); CHLORIDE LEVEL 109 MEQ/L (98-107); CREATININE FOR GFR 0.96 MG/DL (0.70-1.30); GLOMERULAR FILTRATION RATE > 60.0 (>60); GLUCOSE, FASTING 98 MG/DL (70-100); POTASSIUM SERUM 3.7 MEQ/L (3.5-5.1); SODIUM LEVEL 141 MEQ/L (136-145)
[2019-02-07] MEDS: SLF 3 ML SYR IV SCH (05:30)
[2019-02-07 07:42] VITALS: BP 116/55
[2019-02-07] MEDS: LOSARTAN 25 MG TAB PO SCH (09:00)
[2019-02-07] MEDS: HEPARIN SOD (PORCINE) 5000 UNITS/ML VIAL SC SCH (09:00)
[2019-02-07] MEDS: TORSEMIDE 20 MG TAB PO SCH (09:00)
[2019-02-07] MEDS: CLOTRIMAZOLE 1% TOPICAL CREAM 30GM TOP SCH (09:00)
[2019-02-07] MEDS: SPIRONOLACTONE 50 MG TAB PO SCH (10:00)
[2019-02-07] MEDS ORDERED: AMOX500T PO (11:34)
[2019-02-07] MEDS ORDERED: CLOTR1CR TOP (11:34)
[2019-02-07 11:42] VITALS: BP 135/78
[2019-02-07] MEDS ORDERED: cefTRIAXone SOD 1 GM in D5W MINI-BAG PLUS 50 ML IV SCH (14:00)
--- NOTE | 2019-02-07 14:40 | DS.PDOC ---
Discharge Summary General Date of Admission Feb 04, 2019 at 01:44 Date of Discharge 02/07/19 Discharge Summary PROCEDURES PERFORMED DURING STAY: Echo DISCHARGE DIAGNOSES: Pneumonia Streptococcus agalactiae bacterimia corrected congenital heart disease with double inlet single ventricle,severely atrophic right ventricle with pulmonic stenosis, s/p Fontan procedure at age 9 years. 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 COMPLICATIONS/CHIEF COMPLAINT: Elevated Troponin, Past Hx Of Tetraology Of Fallot. HISTORY OF PRESENT ILLNESS: please see history and physical HOSPITAL COURSE: Patient is 44 years old male with past mental history of congenital heart diseases 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 In emergency room patient was found to have a right middle lobe opacity, left lobe opacities on the chest x-ray. He was admitted for Pneumonia Community acquired pneumonia blood culture from 02/03 Strep Agalactiae group b finished 5 days of ceftriaxone will dc with amoxycillin 1000 mg tid for 10 days. ID was consulted for bacteremia in a patient with corrected congenital heart disease Echo sent to [facility] estate planning attorney for read. Disc has also been mailed to his own estate planning attorney group in [place]. Spoke with Dr Moser this am . He did not see any vegetations in the echo. His cardiac status looked stable and no change from his usual . As per him pateint can be discharged from cardiac stand point. He will follow up up in the office this week. His office will call the patient on 02/08/19 for appointment repeat blood cultures cultures 02/04/19 negative Corrected congenital heart disease with chronic CHF spoke with his estate planning attorney with whom the patient primarily follows Dr Justen Moser at [phone] As per him patient has a single ventricle and had Fontan procedure. Reviewed Notes from from Dr Moser's office. Echo initially sent to [facility] pediatric cardiology which was read by Dr Reginaldo Romero . It was then sent from [facility] to [place] Dr Moser who is patient,s own java flex developer He was concerned whether patient had any ascites or not as these patient as per him are prone to developing SBP also. However patient's abdominal exam is benign and it does not look like he has any ascites at this time. patient is starting to build up fluids restarted torsemide and spironolactone and losartan. however patient did refuse this morning's torsemide only took the spironolactone. it seems he does not take both of them every day. CHF chronic right heart failure Echo initially sent to [facility] pediatric cardiology which was read by Dr Reginaldo Romero . It was then sent from [facility] to [place] Dr Moser who is patient,s own java flex developer will restart torsemide, spironolactone and losartan. Elevated troponins flat pattern possibly from his chronic cardiac issues and chronic heart failure DISCHARGE MEDICATIONS: Please see below. ALLERGIES: Please see below. PHYSICAL EXAMINATION ON DISCHARGE: VITAL SIGNS: Please see below. General Exam: Positive: Alert, Cooperative, No Acute Distress Eye Exam: Positive: PERRLA, Conjunctiva & lids normal ENT Exam: Positive: Atraumatic Neck Exam: Positive: Supple; Negative: JVD Chest Exam: Positive: Clear to auscultation; Negative: Rales, Rhonchi, Wheezing Heart Exam: Positive: Rate Normal, Regular Rhythm, Other; Negative: Gallops, Murmurs, Rubs Abdomen Exam: Positive: Normal bowel sounds, Soft; Negative: Tenderness Extremity Exam: Positive: Edema; Negative: Clubbing, Cyanosis Neuro Exam: Positive: Normal Gait, Normal Speech, Cranial Nerves 3-12 NL Psych Exam: Positive: Mental status NL, Mood NL, Oriented x 3 LABORATORY DATA: Please see below. ACTIVITY: [As tolerated]. DIET: As tolerted. Follow fluid restriction as per java flex developer. DISCHARGE PLAN: home DISPOSITION: . DISCHARGE INSTRUCTIONS: Follow up Dr Moser in [place] pediatric cardiology DISCHARGE CONDITION: [Stable]. TIME SPENT ON DISCHARGE: 35 minutes. Vital Signs/I&Os Vital Signs Date Time Temp Pulse Resp B/P (MAP) Pulse Ox O2 Delivery O2 Flow Rate FiO2 02/07/19 11:42 98.1 74 18 135/78 (97) 93 02/04/19 13:00 2.0 02/04/19 02:00 Nasal Cannula I&O- Last 24 Hours up to 6 AM 02/07/19 06:00 Intake Total 1350 ml Output Total 3700 ml Balance -2350 ml Laboratory Data Labs 24H Laboratory Tests 2 02/07/19 04:27: Immature Granulocyte % (Auto) 0.4, White Blood Count 4.8, Red Blood Count 5.10, Hemoglobin 14.6, Hematocrit 44.7, Mean Corpuscular Volume 87.6, Mean Corpuscular Hemoglobin 28.6, Mean Corpuscular Hemoglobin Concent 32.7, Red Cell Distribution Width 13.6, Platelet Count 133L, Neutrophils (%) (Auto) 68.6H, Lymphocytes (%) (Auto) 18.2L, Monocytes (%) (Auto) 5.7H, Eosinophils (%) (Auto) 6.7H, Basophils (%) (Auto) 0.4, Neutrophils # (Auto) 3.3, Lymphocytes # (Auto) 0.9L, Monocytes # (Auto) 0.3, Eosinophils # (Auto) 0.3, Basophils # (Auto) 0.0, Nucleated Red Blood Cells % (auto) 0.0, Anion Gap 5L, Glomerular Filtration Rate > 60.0, Blood Urea Nitrogen 13, Creatinine 0.96, Sodium Level 141, Potassium Level 3.7, Chloride Level 109H, Carbon Dioxide Level 27, Calcium Level 9.9 CBC/BMP Laboratory Tests 02/07/19 04:27 Red Blood Count 5.10, Mean Corpuscular Volume 87.6, Mean Corpuscular Hemoglobin 28.6, Mean Corpuscular Hemoglobin Concent 32.7, Red Cell Distribution Width 13.6, Neutrophils (%) (Auto) 68.6 H, Lymphocytes (%) (Auto) 18.2 L, Monocytes (%) (Auto) 5.7 H, Eosinophils (%) (Auto) 6.7 H, Basophils (%) (Auto) 0.4, Neutrophils # (Auto) 3.3, Lymphocytes # (Auto) 0.9 L, Monocytes # (Auto) 0.3, Eosinophils # (Auto) 0.3, Basophils # (Auto) 0.0, Calcium Level 9.9 Microbiology Microbiology 02/04/19 Blood Culture - Preliminary, Resulted No Growth after 48 hours. All Specime... 02/04/19 Blood Culture - Preliminary, Resulted No Growth after 48 hours. All Specime... 02/03/19 Blood Culture - Final, Complete Strep Agalactiae Group B 02/03/19 Blood Culture - Final, Complete Strep Agalactiae Group B Discharge Medications Scheduled Amoxicillin (Amoxicillin) 500 Mg Tablet, 2 TAB PO TID Clotrimazole (Clotrimazole) 30 Gm Cream..g., 0 DOSE TOP BID Losartan Potassium (Losartan Potassium) 25 Mg Tablet, 25 MG PO DAILY, (Reported) Milk Thistle Seed Extract (Milk Thistle) 200 Mg Capsule, 600 MG PO DAILY, (Reported) Multivitamins (Thera M Plus Tablet) 1 Tab Tab, 1 TAB PO DAILY, (Reported) Selenium (Selenium) 100 Mcg Tablet, 300 MCG PO DAILY, (Reported) Spironolactone (Spironolactone) 100 Mg Tablet, 50 MG PO DAILY, (Reported) Torsemide (Torsemide) 20 Mg Tablet, 20 MG PO DAILY, (Reported) Allergies Coded Allergies: vancomycin (Verified Adverse Reaction, Intermediate, Red Man Syndrome, 02/03/19) PARVIZ MEADOWS MD Feb 07, 2019 14:40
== END 2019-02-07 15:12 | disposition home or self-care (01) | DRG 194 ==
LOC: M ED 20:38 → M ED INP 02-04 01:44 → M ICU 02-04 02:34 → M PCU 02-05 13:12
PROVIDERS: ADMIT Internal Medicine; ATTEND Internal Medicine Nephrology
DX: J18.9 Pneumonia, unspecified organism (principal); R78.81 Bacteremia; I48.3 Typical atrial flutter; I48.91 Unspecified atrial fibrillation; Z95.0 Presence of cardiac pacemaker; K76.1 Chronic passive congestion of liver; I50.812 Chronic right heart failure; Z79.899 Other long term (current) drug therapy; Z88.1 Allergy status to other antibiotic agents

== ENCOUNTER → 2019-02-16 | Outpatient (REF) | payer MEDICARE, MEDICAID ==
[~2019-02-16] MED LIST changes: +AMOX500T PO; +CLOTR1CR TOP; +LOSA25TA14 PO; +RA M200C4 PO; +SELE100T PO; +SPIR100T3 PO; +TORS20TA2 PO
[2019-02-16 16:53] LABS: BASO % 0.5 % (0.0-1.0); EOS # 0.2 10^3/uL (0.0-0.5); EOS % 3.7 % (0.0-3.0); HEMATOCRIT 44.8 % (42.0-52.0); HEMOGLOBIN 14.7 g/dl (13.5-17.5); LYMPH # 0.8 10^3/uL (1.5-5.0); LYMPH % 14.5 % (24.0-44.0); MEAN CORPUSCULAR HEMOGLOBIN 28.4 pg (27.0-33.0); MEAN CORPUSCULAR HGB CONC 32.8 g/dl (32.0-36.5); MEAN CORPUSCULAR VOLUME 86.7 fl (80.0-96.0); MONO # 0.3 10^3/uL (0.0-0.8); MONO % 5.3 % (0.0-5.0); NEUTROPHILS # 4.3 10^3/uL (1.5-8.5); NEUTROPHILS % 75.8 % (36.0-66.0); PLATELET COUNT, AUTOMATED 217 10^3/uL (150-450); RED BLOOD COUNT 5.17 10^6/uL (4.30-6.10); WHITE BLOOD COUNT 5.7 10^3/uL (4.0-10.0)
[2019-02-16 17:14] LABS: ALBUMIN 3.1 GM/DL (3.2-5.2); ALT/SGPT 36 U/L (12-78); BILIRUBIN,TOTAL 0.7 MG/DL (0.2-1.0); BLOOD UREA NITROGEN 11 MG/DL (7-18); CALCIUM LEVEL 10.7 MG/DL (8.5-10.1); CARBON DIOXIDE LEVEL 25 MEQ/L (21-32); CHLORIDE LEVEL 108 MEQ/L (98-107); CREATININE FOR GFR 0.87 MG/DL (0.70-1.30); GLOMERULAR FILTRATION RATE > 60.0 (>60); GLUCOSE, FASTING 60 MG/DL (70-100); POTASSIUM SERUM 4.3 MEQ/L (3.5-5.1); SODIUM LEVEL 140 MEQ/L (136-145); TOTAL PROTEIN 6.2 GM/DL (6.4-8.2)
== END ==
LOC: M LAB REF 15:15
DX: Z79.2 Long term (current) use of antibiotics (principal)

== ENCOUNTER → 2019-02-22 | Outpatient (REF) | payer MEDICARE, MEDICAID ==
[2019-02-22 16:58] LABS: BASO % 0.9 % (0.0-1.0); EOS # 0.3 10^3/uL (0.0-0.5); EOS % 7.3 % (0.0-3.0); HEMOGLOBIN 14.4 g/dl (13.5-17.5); LYMPH # 0.5 10^3/uL (1.5-5.0); LYMPH % 15.7 % (24.0-44.0); MEAN CORPUSCULAR HGB CONC 32.7 g/dl (32.0-36.5); MEAN CORPUSCULAR VOLUME 88.7 fl (80.0-96.0); MONO # 0.2 10^3/uL (0.0-0.8); MONO % 6.1 % (0.0-5.0); NEUTROPHILS # 2.4 10^3/uL (1.5-8.5); NEUTROPHILS % 69.4 % (36.0-66.0); PLATELET COUNT, AUTOMATED 157 10^3/uL (150-450); RED BLOOD COUNT 4.96 10^6/uL (4.30-6.10); WHITE BLOOD COUNT 3.4 10^3/uL (4.0-10.0)
[2019-02-22 17:25] LABS: ALBUMIN 2.8 GM/DL (3.2-5.2); ALT/SGPT 25 U/L (12-78); BILIRUBIN,TOTAL 0.6 MG/DL (0.2-1.0); BLOOD UREA NITROGEN 12 MG/DL (7-18); CALCIUM LEVEL 9.7 MG/DL (8.5-10.1); CARBON DIOXIDE LEVEL 26 MEQ/L (21-32); CHLORIDE LEVEL 111 MEQ/L (98-107); CREATININE FOR GFR 0.85 MG/DL (0.70-1.30); GLOMERULAR FILTRATION RATE > 60.0 (>60); GLUCOSE, FASTING 71 MG/DL (70-100); POTASSIUM SERUM 5.1 MEQ/L (3.5-5.1); SODIUM LEVEL 142 MEQ/L (136-145); TOTAL PROTEIN 5.3 GM/DL (6.4-8.2)
== END ==
LOC: M LAB REF 16:32
PROVIDERS: ATTEND Internal Medicine Clinical Cardiac Electrophysiology
DX: Z79.2 Long term (current) use of antibiotics (principal)

== ENCOUNTER → 2019-03-01 | Outpatient (REF) | payer MEDICARE, MEDICAID ==
[2019-03-01 18:50] LABS: BASO % 0.7 % (0.0-1.0); EOS # 0.3 10^3/uL (0.0-0.5); EOS % 8.1 % (0.0-3.0); HEMATOCRIT 45.8 % (42.0-52.0); HEMOGLOBIN 15.1 g/dl (13.5-17.5); LYMPH # 0.7 10^3/uL (1.5-5.0); LYMPH % 17.5 % (24.0-44.0); MEAN CORPUSCULAR HEMOGLOBIN 28.7 pg (27.0-33.0); MEAN CORPUSCULAR VOLUME 86.9 fl (80.0-96.0); MONO # 0.3 10^3/uL (0.0-0.8); MONO % 6.9 % (0.0-5.0); NEUTROPHILS # 2.7 10^3/uL (1.5-8.5); NEUTROPHILS % 66.6 % (36.0-66.0); PLATELET COUNT, AUTOMATED 148 10^3/uL (150-450); RED BLOOD COUNT 5.27 10^6/uL (4.30-6.10); WHITE BLOOD COUNT 4.1 10^3/uL (4.0-10.0)
[2019-03-01 19:12] LABS: ALBUMIN 2.9 GM/DL (3.2-5.2); ALT/SGPT 32 U/L (12-78); BILIRUBIN,TOTAL 0.6 MG/DL (0.2-1.0); BLOOD UREA NITROGEN 17 MG/DL (7-18); CALCIUM LEVEL 9.5 MG/DL (8.5-10.1); CARBON DIOXIDE LEVEL 25 MEQ/L (21-32); CHLORIDE LEVEL 110 MEQ/L (98-107); CREATININE FOR GFR 0.89 MG/DL (0.70-1.30); GLOMERULAR FILTRATION RATE > 60.0 (>60); GLUCOSE, FASTING 71 MG/DL (70-100); POTASSIUM SERUM 5.1 MEQ/L (3.5-5.1); SODIUM LEVEL 142 MEQ/L (136-145); TOTAL PROTEIN 5.7 GM/DL (6.4-8.2)
== END ==
LOC: M LAB REF 16:25
PROVIDERS: ATTEND Physician Assistant
DX: Z79.2 Long term (current) use of antibiotics (principal)

== ENCOUNTER → 2019-03-09 | Outpatient (REF) | payer MEDICARE, MEDICAID ==
[2019-03-09 17:43] LABS: BASO % 0.8 % (0.0-1.0); EOS # 0.4 10^3/uL (0.0-0.5); EOS % 10.3 % (0.0-3.0); HEMATOCRIT 44.5 % (42.0-52.0); HEMOGLOBIN 14.4 g/dl (13.5-17.5); LYMPH # 0.6 10^3/uL (1.5-5.0); LYMPH % 16.6 % (24.0-44.0); MEAN CORPUSCULAR HEMOGLOBIN 28.7 pg (27.0-33.0); MEAN CORPUSCULAR HGB CONC 32.4 g/dl (32.0-36.5); MEAN CORPUSCULAR VOLUME 88.6 fl (80.0-96.0); MONO # 0.3 10^3/uL (0.0-0.8); MONO % 6.9 % (0.0-5.0); NEUTROPHILS # 2.5 10^3/uL (1.5-8.5); NEUTROPHILS % 65.1 % (36.0-66.0); PLATELET COUNT, AUTOMATED 103 10^3/uL (150-450); RED BLOOD COUNT 5.02 10^6/uL (4.30-6.10); WHITE BLOOD COUNT 3.8 10^3/uL (4.0-10.0)
[2019-03-09 18:11] LABS: ALBUMIN 2.7 GM/DL (3.2-5.2); ALT/SGPT 28 U/L (12-78); BILIRUBIN,TOTAL 0.5 MG/DL (0.2-1.0); BLOOD UREA NITROGEN 17 MG/DL (7-18); CALCIUM LEVEL 9.2 MG/DL (8.5-10.1); CARBON DIOXIDE LEVEL 26 MEQ/L (21-32); CHLORIDE LEVEL 112 MEQ/L (98-107); CREATININE FOR GFR 0.84 MG/DL (0.70-1.30); GLOMERULAR FILTRATION RATE > 60.0 (>60); GLUCOSE, FASTING 68 MG/DL (70-100); POTASSIUM SERUM 4.5 MEQ/L (3.5-5.1); SODIUM LEVEL 144 MEQ/L (136-145); TOTAL PROTEIN 5.3 GM/DL (6.4-8.2)
== END ==
LOC: M LAB REF 16:43
PROVIDERS: ATTEND Physician Assistant
DX: L03.90 Cellulitis, unspecified (principal); Z79.2 Long term (current) use of antibiotics

== ENCOUNTER 2019-11-02 11:20 | Emergency (ER) | payer MEDICARE, MEDICAID ==
[~2019-11-02] VITALS: Ht 190.5 cm; Wt 90.9 kg
[2019-11-02] MEDS ORDERED: ONDANSETRON 4MG/2ML VIAL IV ONE (12:00)
[2019-11-02] MEDS ORDERED: NS 500 ML IV ONE (12:00)
[2019-11-02] MEDS: MORPHINE 4 MG/ML 1ML VIAL/SYRINGE (J2270) IV PRN ×2 (12:01→12:44)
[2019-11-02 12:09] LABS: BASO # 0.1 10^3/uL (0.0-0.2); BASO % 0.6 % (0.0-1.0); EOS # 0.2 10^3/uL (0.0-0.5); EOS % 2.7 % (0.0-3.0); HEMOGLOBIN 17.5 g/dl (13.5-17.5); LYMPH # 2.5 10^3/uL (1.5-5.0); LYMPH % 27.2 % (24.0-44.0); MEAN CORPUSCULAR HEMOGLOBIN 28.7 pg (27.0-33.0); MEAN CORPUSCULAR HGB CONC 33.7 g/dl (32.0-36.5); MEAN CORPUSCULAR VOLUME 85.2 fl (80.0-96.0); MONO # 0.5 10^3/uL (0.0-0.8); MONO % 5.1 % (0.0-5.0); NEUTROPHILS # 5.8 10^3/uL (1.5-8.5); NEUTROPHILS % 64.1 % (36.0-66.0); PLATELET COUNT, AUTOMATED 266 10^3/uL (150-450)
[2019-11-02] MEDS ORDERED: ISOVUE-370 76% 100ML VIAL As Ordered ONE (13:00)
[2019-11-02 13:34] LABS: ALBUMIN 2.1 GM/DL (3.2-5.2); ALT/SGPT 43 U/L (12-78); BILIRUBIN,DIRECT < 0.1 MG/DL (0.0-0.2); BILIRUBIN,TOTAL 0.7 MG/DL (0.2-1.0); LIPASE 230 U/L (73-393); TOTAL PROTEIN 6.2 GM/DL (6.4-8.2)
[2019-11-02] MEDS ORDERED: PIPERACILLIN/TAZOBACTAM SOD 3.375 GM in D5W MINI-BAG PLUS 50 ML IV ONE (13:45)
[2019-11-02] MEDS ORDERED: NS 1,000 ML IV SCH (13:45)
[2019-11-02] MEDS ORDERED: MORPHINE 4 MG/ML 1ML VIAL/SYRINGE (J2270) IV PRN (14:00)
--- NOTE | 2019-11-02 15:00 | REP ---
REASON FOR EXAM: Abdominal pain. Supine and cross-table lateral views were obtained with frontal view of the chest. There are a few mildly dilated gas-filled small bowel loops in the abdomen. There is no evidence of free intraperitoneal air. The accompanying frontal view of the chest has been compared to the latest prior examinations 02/03/2019, a portable exam. That examination shows no significant change from out examination today. There is cardiomegaly status quo. There are no new abnormal lung field opacities. There is no change in the osseous structures. There is no free subdiaphragmatic air. IMPRESSION: Ileus is suspected, however, early partial small bowel obstruction cannot be ruled out. Electronically Signed by Jayce Scott DO 11/03/2019 10:47 A
[2019-11-02] MEDS ORDERED: ACETAMINOPHEN TAB 650MG DOSE (2X325MG) PO ONE (15:15)
--- NOTE | 2019-11-02 16:00 | REP ---
REASON: Abdominal pain. There are no priors for comparison. CONTRAST: 100 mL Isovue-370. Respiratory motion artifact is seen throughout the lung bases. No significant patchy opacities or pleural effusions are identified. There is four-chamber cardiac enlargement. There is a small amount of ascites. The liver and spleen are within normal limits. The gallbladder has evidence of a slightly thickened wall with cholelithiasis and slight pericholecystic edema. The pancreas and adrenal glands are within normal limits. Tiny bilateral renal cysts are noted. The abdominal aorta and para-aortic regions are within normal limits. There is free intraperitoneal air. There are multiple dilated gas and fluid-filled small bowel loops. Immediately adjacent to the appendix, there is a collection of fluid and air. There is no intra-abdominal or intrapelvic mass or adenopathy. There is a short segment of wall thickened sigmoid colon with tiny air densities immediately adjacent to this area. Bone window technique throughout the examination shows the osseous structures to be within normal limits. IMPRESSION: 1. There is evidence of perforation of a hollow viscus. There is free fluid and free air in the abdomen and pelvis. Two concerning features are that air densities and fluid are seen immediately adjacent to the appendix which itself is nondilated. There is also free air immediately adjacent to a short segment of wall thickened sigmoid colon. I cannot say for certain which of those two entities is responsible for the bowel perforation, if either. There is a reactive small bowel ileus. 2. Cholelithiasis with a thickened gallbladder wall and pericholecystic edema. Certainly, the pericholecystic edema could be solely secondary to the aforementioned ascites rather than edema associated with acute cholecystitis. This distinction would have to be made clinically. 3. A phone call was placed to the patient's ER provider, Dr. Odilon Horn, and these findings were discussed at this time since free air is a critical value. Electronically Signed by Jayce Scott DO 11/03/2019 10:47 A
[2019-11-02 16:11] VITALS: BP 140/62
--- NOTE | 2019-11-02 20:15 | ECGEPIP ---
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
== END 2019-11-02 16:13 | disposition short-term general hospital (02) ==
LOC: EDBD 11:20 → M ED 11:20 → CANBEDREQ 15:46 → M ED 16:13
DX: K57.92 Diverticulitis of intestine, part unspecified, without perforation or abscess without bleeding (principal); K63.1 Perforation of intestine (nontraumatic); R18.8 Other ascites; K82.8 Other specified diseases of gallbladder; Z88.1 Allergy status to other antibiotic agents; Z88.2 Allergy status to sulfonamides; Z95.0 Presence of cardiac pacemaker
CPT/HCPCS: 36415; 74021; 74177; 80047; 80076; 83605; 83690; 85025; 93005; 93041; 96361; 96374; 96375; 96376; 99285; J2270; J2405; J2543; Q9967

== ENCOUNTER → 2019-12-03 | Outpatient (REF) | payer MEDICARE, MEDICAID ==
[2019-12-03 17:45] LABS: BASO % 0.4 % (0.0-1.0); EOS # 0.1 10^3/uL (0.0-0.5); HEMATOCRIT 31.8 % (42.0-52.0); HEMOGLOBIN 9.9 g/dl (13.5-17.5); LYMPH # 0.7 10^3/uL (1.5-5.0); LYMPH % 8.4 % (24.0-44.0); MEAN CORPUSCULAR HEMOGLOBIN 26.9 pg (27.0-33.0); MEAN CORPUSCULAR HGB CONC 31.1 g/dl (32.0-36.5); MEAN CORPUSCULAR VOLUME 86.4 fl (80.0-96.0); MONO # 0.6 10^3/uL (0.0-0.8); NEUTROPHILS # 6.6 10^3/uL (1.5-8.5); NEUTROPHILS % 82.8 % (36.0-66.0); PLATELET COUNT, AUTOMATED 283 10^3/uL (150-450); RED BLOOD COUNT 3.68 10^6/uL (4.30-6.10); WHITE BLOOD COUNT 7.9 10^3/uL (4.0-10.0)
== END ==
LOC: M LAB REF 16:44
PROVIDERS: ATTEND Internal Medicine
DX: Q20.4 Double inlet ventricle (principal); N17.9 Acute kidney failure, unspecified; I44.30 Unspecified atrioventricular block

== ENCOUNTER → 2021-08-23 | Outpatient (CLI) | payer MEDICARE, MEDICAID ==
[~2021-08-23] MED LIST changes: +LOSA25TA13 PO; -LOSA25TA14 PO
[2021-08-23 14:31] LABS: BASO % 0.7 % (0.0-1.0); EOS # 0.3 10^3/uL (0.0-0.5); EOS % 4.9 % (0.0-3.0); HEMATOCRIT 43.4 % (42.0-52.0); HEMOGLOBIN 13.1 g/dl (13.5-17.5); LYMPH # 0.6 10^3/uL (1.5-5.0); LYMPH % 10.8 % (24.0-44.0); MEAN CORPUSCULAR HGB CONC 30.2 g/dl (32.0-36.5); MEAN CORPUSCULAR VOLUME 76.1 fl (80.0-96.0); MONO # 0.4 10^3/uL (0.0-0.8); NEUTROPHILS # 4.4 10^3/uL (1.5-8.5); NEUTROPHILS % 76.3 % (36.0-66.0); PLATELET COUNT, AUTOMATED 167 10^3/uL (150-450); WHITE BLOOD COUNT 5.7 10^3/uL (4.0-10.0)
[2021-08-23 14:34] LABS: HEMATOCRIT 43.4 % (42.0-52.0)
[2021-08-23 15:56] LABS: ALBUMIN 2.6 GM/DL (3.2-5.2); BLOOD UREA NITROGEN 16 MG/DL (7-18); CALCIUM LEVEL 8.8 MG/DL (8.5-10.1); CARBON DIOXIDE LEVEL 22 MEQ/L (21-32); CHLORIDE LEVEL 113 MEQ/L (98-107); CHOLESTEROL LEVEL 129 MG/DL (<200); CREATININE FOR GFR 0.93 MG/DL (0.70-1.30); FERRITIN 5 NG/ML (26-388); GLOMERULAR FILTRATION RATE > 60.0 (>60); GLUCOSE, FASTING 85 MG/DL (70-100); HDL CHOLESTEROL 43 MG/DL (>40); LDL CHOLESTEROL 68 MG/DL (<100); NON-HDL-C 86 MG/DL; PHOSPHORUS LEVEL 2.3 MG/DL (2.5-4.9); POTASSIUM SERUM 4.2 MEQ/L (3.5-5.1); PTH INTACT 287.6 PG/ML (18.5-88.0); SODIUM LEVEL 141 MEQ/L (136-145); TOTAL 25(OH) VITAMIN D 29.6 NG/ML (30.0-100.0); TRIGLYCERIDES LEVEL 89 MG/DL (<150); VITAMIN B12 LEVEL 492 PG/ML (247-911)
[2021-08-23 17:26] LABS: HEMOGLOBIN A1c 5.1 %
[2021-09-04 11:08] LABS: H PYLORI SERUM QUANT IGA <9.0 units (0.0-8.9); VITAMIN B1 LEVEL WHOLE BLOOD 163.8 nmol/L (66.5-200.0)
== END ==
LOC: M PLALAB 10:03
PROVIDERS: ATTEND Family Medicine
DX: D50.9 Iron deficiency anemia, unspecified (principal); E55.9 Vitamin D deficiency, unspecified; I44.2 Atrioventricular block, complete; Z79.899 Other long term (current) drug therapy

== ENCOUNTER 2021-08-27 12:13 | Outpatient (CLI) | payer MEDICARE, MEDICAID ==
[~2021-08-27] VITALS: Ht 191.8 cm; Wt 95.4 kg
[~2021-08-27 12:13] MED LIST changes: +ALBUTEROL SULFATE 2.5 MG/0.5 ML INH NEB SOLN INH PRN; +EPINEPHrine INJ 1 MG/ML 1ML AMP IM PRN; +diphenhydrAMINE 50MG/ML VIAL (J1200) IV PRN; +methylPREDNISolone 125MG 2ML VIAL IV PRN
[2021-08-27] MEDS ORDERED: NS 1,000 ML IV SCH (12:30)
[2021-08-27] MEDS ORDERED: FERRIC CARBOXYMALTOSE INJ 750 MG, VIAL MATE ADAPTER 1 EACH in NS 250 ML IV ONE (12:30)
[2021-08-27 12:45] VITALS: BP 126/68
[2021-08-27 14:10] VITALS: BP 111/54
[2021-08-27 14:55] VITALS: BP 108/48
== END 2021-08-27 14:55 | disposition home or self-care (01) ==
LOC: M INFU 12:13
PROVIDERS: ATTEND Family Medicine
DX: D50.9 Iron deficiency anemia, unspecified (principal); Z88.1 Allergy status to other antibiotic agents; Z88.2 Allergy status to sulfonamides
CPT/HCPCS: 96365; J1439

== ENCOUNTER 2021-09-03 12:27 | Outpatient (CLI) | payer MEDICARE, MEDICAID ==
[~2021-09-03] VITALS: Ht 190.5 cm; Wt 95.4 kg
[2021-09-03] MEDS ORDERED: NS 1,000 ML IV SCH (12:30)
[2021-09-03] MEDS ORDERED: FERRIC CARBOXYMALTOSE INJ 750 MG, VIAL MATE ADAPTER 1 EACH in NS 250 ML IV ONE (12:30)
[2021-09-03 12:44] VITALS: BP 119/68
[2021-09-03 14:00] VITALS: BP 126/63
== END 2021-09-03 14:00 | disposition home or self-care (01) ==
LOC: M INFU 12:27
PROVIDERS: ATTEND Family Medicine
DX: D50.9 Iron deficiency anemia, unspecified (principal); Z88.1 Allergy status to other antibiotic agents; Z88.2 Allergy status to sulfonamides
CPT/HCPCS: 96365; J1439

== ENCOUNTER → 2021-09-21 | Outpatient (CLI) | payer MEDICARE, MEDICAID ==
[~2021-09-21] MED LIST changes: -ALBUTEROL SULFATE 2.5 MG/0.5 ML INH NEB SOLN INH PRN; -EPINEPHrine INJ 1 MG/ML 1ML AMP IM PRN; -diphenhydrAMINE 50MG/ML VIAL (J1200) IV PRN; -methylPREDNISolone 125MG 2ML VIAL IV PRN
[2021-09-21 15:16] LABS: BASO % 0.4 % (0.0-1.0); EOS # 0.2 10^3/uL (0.0-0.5); EOS % 3.8 % (0.0-3.0); HEMATOCRIT 47.8 % (42.0-52.0); HEMOGLOBIN 15.1 g/dl (13.5-17.5); LYMPH # 0.6 10^3/uL (1.5-5.0); MEAN CORPUSCULAR HEMOGLOBIN 25.9 pg (27.0-33.0); MEAN CORPUSCULAR HGB CONC 31.6 g/dl (32.0-36.5); MEAN CORPUSCULAR VOLUME 81.8 fl (80.0-96.0); MONO # 0.3 10^3/uL (0.0-0.8); MONO % 6.5 % (2.0-8.0); NEUTROPHILS # 3.6 10^3/uL (1.5-8.5); NEUTROPHILS % 76.1 % (36.0-66.0); PLATELET COUNT, AUTOMATED 150 10^3/uL (150-450); RED BLOOD COUNT 5.84 10^6/uL (4.30-6.10); WHITE BLOOD COUNT 4.8 10^3/uL (4.0-10.0)
[2021-09-21 15:23] LABS: INR 1.11; PROTHROMBIN TIME 14.7 SECONDS (12.7-14.5)
[2021-09-21 15:24] LABS: PARTIAL THROMBOPLASTIN TIME 36.1 SECONDS (25.9-37.0)
[2021-09-21 15:45] LABS: ALBUMIN 2.8 GM/DL (3.2-5.2); ALT/SGPT 33 U/L (12-78); BILIRUBIN,TOTAL 0.8 MG/DL (0.2-1.0); BLOOD UREA NITROGEN 14 MG/DL (7-18); CARBON DIOXIDE LEVEL 23 MEQ/L (21-32); CHLORIDE LEVEL 113 MEQ/L (98-107); CREATININE FOR GFR 0.86 MG/DL (0.70-1.30); FERRITIN 52 NG/ML (26-388); GLOMERULAR FILTRATION RATE > 60.0 (>60); GLUCOSE, FASTING 111 MG/DL (70-100); NT-PRO BNP 239 PG/ML (<125); POTASSIUM SERUM 4.7 MEQ/L (3.5-5.1); SODIUM LEVEL 141 MEQ/L (136-145); TOTAL PROTEIN 5.1 GM/DL (6.4-8.2)
[2021-09-21 15:51] LABS: TOTAL 25(OH) VITAMIN D 30.6 NG/ML (30.0-100.0)
[2021-09-21 15:52] LABS: PTH INTACT 303.2 PG/ML (18.5-88.0)
== END ==
LOC: M PLALAB 12:42
PROVIDERS: ATTEND Family Medicine
DX: I50.22 Chronic systolic (congestive) heart failure (principal)

== ENCOUNTER 2021-10-11 13:59 | Outpatient (CLI) | payer MEDICARE, MEDICAID ==
[~2021-10-11] VITALS: Ht 190.5 cm; Wt 95.4 kg
[~2021-10-11 13:59] MED LIST changes: +ALBUTEROL SULFATE 2.5 MG/0.5 ML INH NEB SOLN INH PRN; +EPINEPHrine INJ 1 MG/ML 1ML AMP IM PRN; +FERRIC CARBOXYMALTOSE INJ 750 MG, VIAL MATE ADAPTER 1 EACH in NS 250 ML IV ONE; +NS 1,000 ML IV SCH; +diphenhydrAMINE 50MG/ML VIAL (J1200) IV PRN; +methylPREDNISolone 125MG 2ML VIAL IV PRN
[2021-10-11 14:40] VITALS: BP 110/64
[2021-10-11 15:45] VITALS: BP 101/57
== END 2021-10-11 15:45 | disposition home or self-care (01) ==
LOC: M INFU 13:59
PROVIDERS: ATTEND Family Medicine
DX: D50.9 Iron deficiency anemia, unspecified (principal); Z88.2 Allergy status to sulfonamides
CPT/HCPCS: 96365; J1439

== ENCOUNTER → 2021-12-05 | Outpatient (CLI) | payer MEDICARE, MEDICAID ==
[~2021-12-05] MED LIST changes: -ALBUTEROL SULFATE 2.5 MG/0.5 ML INH NEB SOLN INH PRN; -EPINEPHrine INJ 1 MG/ML 1ML AMP IM PRN; -FERRIC CARBOXYMALTOSE INJ 750 MG, VIAL MATE ADAPTER 1 EACH in NS 250 ML IV ONE; -NS 1,000 ML IV SCH; -diphenhydrAMINE 50MG/ML VIAL (J1200) IV PRN; -methylPREDNISolone 125MG 2ML VIAL IV PRN
[2021-12-05 15:28] LABS: BASO % 0.6 % (0.0-1.0); EOS # 0.3 10^3/uL (0.0-0.5); EOS % 5.6 % (0.0-3.0); HEMATOCRIT 50.5 % (42.0-52.0); LYMPH # 0.8 10^3/uL (1.5-5.0); MEAN CORPUSCULAR HGB CONC 33.7 g/dl (32.0-36.5); MEAN CORPUSCULAR VOLUME 89.2 fl (80.0-96.0); MONO # 0.3 10^3/uL (0.0-0.8); MONO % 5.6 % (2.0-8.0); NEUTROPHILS # 3.3 10^3/uL (1.5-8.5); NEUTROPHILS % 70.8 % (36.0-66.0); PLATELET COUNT, AUTOMATED 147 10^3/uL (150-450); RED BLOOD COUNT 5.66 10^6/uL (4.30-6.10); WHITE BLOOD COUNT 4.7 10^3/uL (4.0-10.0)
[2021-12-05 18:16] LABS: ALBUMIN 3.2 GM/DL (3.2-5.2); ALT/SGPT 28 U/L (12-78); BILIRUBIN,TOTAL 1.6 MG/DL (0.2-1.0); BLOOD UREA NITROGEN 17 MG/DL (7-18); CALCIUM LEVEL 9.9 MG/DL (8.5-10.1); CARBON DIOXIDE LEVEL 25 MEQ/L (21-32); CHLORIDE LEVEL 111 MEQ/L (98-107); CREATININE FOR GFR 0.85 MG/DL (0.70-1.30); FERRITIN 31 NG/ML (26-388); GLOMERULAR FILTRATION RATE > 60.0 (>60); GLUCOSE, FASTING 107 MG/DL (70-100); MAGNESIUM LEVEL 2.4 MG/DL (1.8-2.4); NT-PRO BNP 345 PG/ML (<125); POTASSIUM SERUM 4.9 MEQ/L (3.5-5.1); SODIUM LEVEL 141 MEQ/L (136-145); TOTAL PROTEIN 5.7 GM/DL (6.4-8.2)
[2021-12-05 19:26] LABS: PTH INTACT 240.6 PG/ML (18.5-88.0); TOTAL 25(OH) VITAMIN D 21.4 NG/ML (30.0-100.0)
== END ==
LOC: M PLALAB 11:55
PROVIDERS: ATTEND Family Medicine
DX: K72.10 Chronic hepatic failure without coma (principal); I50.22 Chronic systolic (congestive) heart failure; D50.9 Iron deficiency anemia, unspecified; E55.9 Vitamin D deficiency, unspecified

== ENCOUNTER → 2022-06-04 | Outpatient (REF) | payer MEDICARE, MEDICAID ==
[2022-06-04 18:03] LABS: BASO % 0.7 % (0.0-1.0); EOS # 0.1 10^3/uL (0.0-0.5); EOS % 3.2 % (0.0-3.0); HEMATOCRIT 51.1 % (42.0-52.0); HEMOGLOBIN 16.9 g/dl (13.5-17.5); LYMPH # 0.7 10^3/uL (1.5-5.0); LYMPH % 15.9 % (24.0-44.0); MEAN CORPUSCULAR HEMOGLOBIN 30.3 pg (27.0-33.0); MEAN CORPUSCULAR HGB CONC 33.1 g/dl (32.0-36.5); MEAN CORPUSCULAR VOLUME 91.7 fl (80.0-96.0); MONO # 0.3 10^3/uL (0.0-0.8); MONO % 6.8 % (2.0-8.0); NEUTROPHILS # 3.2 10^3/uL (1.5-8.5); NEUTROPHILS % 72.9 % (36.0-66.0); PLATELET COUNT, AUTOMATED 158 10^3/uL (150-450); RED BLOOD COUNT 5.57 10^6/uL (4.30-6.10); WHITE BLOOD COUNT 4.4 10^3/uL (4.0-10.0)
[2022-06-04 20:40] LABS: ALBUMIN 3.5 G/DL (3.2-5.2); ALKALINE PHOSPHATASE 78 U/L (46-116); ALT/SGPT 31 U/L (7.0-40); AST/SGOT 27 U/L (<34); BILIRUBIN,TOTAL 1.4 MG/DL (0.3-1.2); BLOOD UREA NITROGEN 17 MG/DL (9-23); CALCIUM LEVEL 10.6 MG/DL (8.5-10.1); CARBON DIOXIDE LEVEL 26 MMOL/L (20-31); CHLORIDE LEVEL 107 MMOL/L (98-107); CREATININE FOR GFR 0.96 MG/DL (0.70-1.30); FERRITIN 47.7 NG/ML (10.5-307.3); FREE T4 1.21 NG/DL (0.89-1.76); GLOMERULAR FILTRATION RATE > 60.0 (>60); GLUCOSE, FASTING 86 MG/DL (60-100); POTASSIUM SERUM 4.3 MMOL/L (3.5-5.1); SODIUM LEVEL 142 MMOL/L (136-145); TOTAL PROTEIN 5.9 G/DL (5.7-8.2)
[2022-06-04 20:41] LABS: THYROID STIMULATING HORMONE 2.553 uIU/ML (0.55-4.78)
[2022-06-04 20:43] LABS: VITAMIN B12 LEVEL 560 PG/ML (211-911)
[2022-06-05 08:22] LABS: THYROID PEROXIDASE ANTIBODY < 28.0 U/ML (<60.0)
== END ==
LOC: M SFHCPLAZ 17:17
PROVIDERS: ATTEND Family Medicine
DX: I50.22 Chronic systolic (congestive) heart failure (principal); D50.9 Iron deficiency anemia, unspecified

== ENCOUNTER → 2022-12-02 | Outpatient (CLI) | payer MEDICARE, MEDICAID ==
[2022-12-02 17:56] LABS: BASO % 0.6 % (0.0-1.0); EOS # 0.2 10^3/uL (0.0-0.5); HEMATOCRIT 48.8 % (42.0-52.0); HEMOGLOBIN 16.8 g/dl (13.5-17.5); LYMPH # 0.6 10^3/uL (1.5-5.0); LYMPH % 11.9 % (24.0-44.0); MEAN CORPUSCULAR HEMOGLOBIN 30.9 pg (27.0-33.0); MEAN CORPUSCULAR HGB CONC 34.4 g/dl (32.0-36.5); MEAN CORPUSCULAR VOLUME 89.9 fl (80.0-96.0); MONO # 0.4 10^3/uL (0.0-0.8); MONO % 6.9 % (2.0-8.0); NEUTROPHILS # 3.9 10^3/uL (1.5-8.5); NEUTROPHILS % 76.2 % (36.0-66.0); PLATELET COUNT, AUTOMATED 133 10^3/uL (150-450); RED BLOOD COUNT 5.43 10^6/uL (4.30-6.10); WHITE BLOOD COUNT 5.1 10^3/uL (4.0-10.0)
[2022-12-02 18:07] LABS: TOTAL 25(OH) VITAMIN D 33.6 NG/ML (20.0-100.0)
[2022-12-02 18:10] LABS: ALBUMIN 2.9 G/DL (3.2-5.2); ALKALINE PHOSPHATASE 57 U/L (46-116); ALT/SGPT < 9 U/L (7.0-40); AST/SGOT < 8 U/L (<34); BILIRUBIN,TOTAL 1.3 MG/DL (0.3-1.2); BLOOD UREA NITROGEN 16 MG/DL (9-23); CALCIUM LEVEL 9.7 MG/DL (8.5-10.1); CARBON DIOXIDE LEVEL 24 MMOL/L (20-31); CHLORIDE LEVEL 109 MMOL/L (98-107); CREATININE FOR GFR 0.83 MG/DL (0.70-1.30); GLOMERULAR FILTRATION RATE > 60.0 (>60); GLUCOSE, FASTING 115 MG/DL (60-100); POTASSIUM SERUM 4.2 MMOL/L (3.5-5.1); SODIUM LEVEL 140 MMOL/L (136-145); TOTAL PROTEIN 5.1 G/DL (5.7-8.2)
[2022-12-02 18:11] LABS: PTH INTACT 225.1 PG/ML (18.5-88.0)
[2022-12-02 18:13] LABS: VITAMIN B12 LEVEL 364 PG/ML (211-911)
== END ==
LOC: M PLALAB 15:05
PROVIDERS: ATTEND Family Medicine
DX: D50.9 Iron deficiency anemia, unspecified (principal); I50.22 Chronic systolic (congestive) heart failure; E55.9 Vitamin D deficiency, unspecified; N25.81 Secondary hyperparathyroidism of renal origin

== ENCOUNTER 2023-02-06 12:50 | Outpatient (CLI) | payer MEDICARE, MEDICAID ==
[~2023-02-06] VITALS: Ht 193 cm; Wt 99.8 kg
[~2023-02-06 12:50] MED LIST changes: +ALBUTEROL SULFATE 2.5MG/0.5ML INH NEB SOLN INH PRN; +EPINEPHrine INJ 1 MG/ML 1ML AMP IM PRN; +diphenhydrAMINE 50MG/ML VIAL IV PRN; +methylPREDNISolone 125MG 2ML VIAL IV PRN
[2023-02-06 13:00] VITALS: BP 141/80; O2SAT 96
[2023-02-06] MEDS ORDERED: NS 1,000 ML IV SCH (13:00)
[2023-02-06] MEDS ORDERED: FERRIC CARBOXYMALTOSE INJ 750 MG in NS 250 ML (>50kg) IV ONE ×3 (13:00)
[2023-02-06 13:24] VITALS: BP 141/80; O2SAT 96
[2023-02-06 14:25] VITALS: BP 119/73; O2SAT 95
== END 2023-02-06 14:30 | disposition home or self-care (01) ==
LOC: M INFU 12:50
PROVIDERS: ATTEND Family Medicine
DX: D50.9 Iron deficiency anemia, unspecified (principal); Z88.2 Allergy status to sulfonamides; Z88.8 Allergy status to other drugs, medicaments and biological substances
CPT/HCPCS: 96365; J1439

== ENCOUNTER 2023-02-13 12:15 | Outpatient (CLI) | payer MEDICARE, MEDICAID ==
[~2023-02-13] VITALS: Ht 193 cm; Wt 99.7 kg
[2023-02-13 12:15] VITALS: BP 142/68; O2SAT 97
[2023-02-13] MEDS ORDERED: NS 1,000 ML IV SCH (12:30)
[2023-02-13] MEDS ORDERED: FERRIC CARBOXYMALTOSE INJ 750 MG in NS 250 ML (>50kg) IV ONE ×3 (12:30)
[2023-02-13 13:45] VITALS: BP 131/67; O2SAT 96
== END 2023-02-13 13:45 | disposition home or self-care (01) ==
LOC: M INFU 12:15
PROVIDERS: ATTEND Family Medicine
DX: D50.9 Iron deficiency anemia, unspecified (principal); Z88.1 Allergy status to other antibiotic agents; Z88.2 Allergy status to sulfonamides
CPT/HCPCS: 96365; J1439

== ENCOUNTER → 2023-03-24 | Outpatient (CLI) | payer MEDICARE, MEDICAID ==
[~2023-03-24] MED LIST changes: -ALBUTEROL SULFATE 2.5MG/0.5ML INH NEB SOLN INH PRN; -EPINEPHrine INJ 1 MG/ML 1ML AMP IM PRN; -diphenhydrAMINE 50MG/ML VIAL IV PRN; -methylPREDNISolone 125MG 2ML VIAL IV PRN
[2023-03-24 18:03] LABS: BASO % 0.6 % (0.0-1.0); EOS # 0.3 10^3/uL (0.0-0.5); EOS % 5.1 % (0.0-3.0); HEMATOCRIT 51.5 % (42.0-52.0); HEMOGLOBIN 17.7 g/dl (13.5-17.5); LYMPH # 0.9 10^3/uL (1.5-5.0); MEAN CORPUSCULAR HEMOGLOBIN 30.9 pg (27.0-33.0); MEAN CORPUSCULAR HGB CONC 34.4 g/dl (32.0-36.5); MEAN CORPUSCULAR VOLUME 89.9 fl (80.0-96.0); MONO # 0.4 10^3/uL (0.0-0.8); MONO % 5.6 % (2.0-8.0); NEUTROPHILS # 4.7 10^3/uL (1.5-8.5); NEUTROPHILS % 74.5 % (36.0-66.0); PLATELET COUNT, AUTOMATED 147 10^3/uL (150-450); RED BLOOD COUNT 5.73 10^6/uL (4.30-6.10); WHITE BLOOD COUNT 6.3 10^3/uL (4.0-10.0)
[2023-03-24 18:05] LABS: HEMATOCRIT 50.9 % (42.0-52.0)
[2023-03-24 18:18] LABS: INR 1.18; PROTHROMBIN TIME 14.7 SECONDS (12.5-14.5)
[2023-03-24 18:19] LABS: PARTIAL THROMBOPLASTIN TIME 34.2 SECONDS (24.8-34.2)
[2023-03-24 18:29] LABS: ALBUMIN 3.6 G/DL (3.2-5.2); BLOOD UREA NITROGEN 17 MG/DL (9-23); CALCIUM LEVEL 9.6 MG/DL (8.5-10.1); CARBON DIOXIDE LEVEL 25 MMOL/L (20-31); CHLORIDE LEVEL 106 MMOL/L (98-107); CREATININE FOR GFR 1.01 MG/DL (0.70-1.30); GLOMERULAR FILTRATION RATE > 60.0 (>60); GLUCOSE, FASTING 69 MG/DL (60-100); PHOSPHORUS LEVEL 1.7 MG/DL (2.5-4.9); POTASSIUM SERUM 4.3 MMOL/L (3.5-5.1); PTH INTACT 340.2 PG/ML (18.5-88.0); SODIUM LEVEL 138 MMOL/L (136-145)
[2023-03-24 18:30] LABS: FERRITIN 111.8 NG/ML (10.5-307.3)
[2023-03-24 18:32] LABS: VITAMIN B12 LEVEL 334 PG/ML (211-911)
[2023-03-30 17:09] LABS: COPPER, RBC 0.66 ug/mL (0.50-1.00); SOLUBLE TRANSFERRIN RECEPTOR 17.2 nmol/L (12.2-27.3); VITAMIN E(ALPHA TOCOPHEROL) 9.7 mg/L (7.0-25.1); VITAMIN E(GAMMA TOCOPHEROL) 0.8 mg/L (0.5-5.5)
== END ==
LOC: M PLALAB 15:38
PROVIDERS: ATTEND Family Medicine
DX: K72.10 Chronic hepatic failure without coma (principal); D50.9 Iron deficiency anemia, unspecified; K90.49 Malabsorption due to intolerance, not elsewhere classified; E21.2 Other hyperparathyroidism

== ENCOUNTER → 2023-06-27 | Outpatient (CLI) | payer MEDICARE, MEDICAID ==
[2023-06-27 18:22] LABS: BASO % 0.7 % (0.0-1.0); EOS # 0.2 10^3/uL (0.0-0.5); EOS % 4.2 % (0.0-3.0); HEMATOCRIT 49.1 % (42.0-52.0); HEMOGLOBIN 17.1 g/dl (13.5-17.5); LYMPH # 0.7 10^3/uL (1.5-5.0); LYMPH % 11.3 % (24.0-44.0); MEAN CORPUSCULAR HEMOGLOBIN 30.8 pg (27.0-33.0); MEAN CORPUSCULAR HGB CONC 34.8 g/dl (32.0-36.5); MEAN CORPUSCULAR VOLUME 88.5 fl (80.0-96.0); MONO # 0.3 10^3/uL (0.0-0.8); MONO % 5.7 % (2.0-8.0); NEUTROPHILS # 4.5 10^3/uL (1.5-8.5); NEUTROPHILS % 77.9 % (36.0-66.0); PLATELET COUNT, AUTOMATED 120 10^3/uL (150-450); RED BLOOD COUNT 5.55 10^6/uL (4.30-6.10); WHITE BLOOD COUNT 5.8 10^3/uL (4.0-10.0)
[2023-06-27 18:43] LABS: ALBUMIN 3.3 G/DL (3.2-5.2); ALKALINE PHOSPHATASE 68 U/L (46-116); ALT/SGPT 25 U/L (7.0-40); AST/SGOT 21 U/L (<34); BILIRUBIN,TOTAL 1.1 MG/DL (0.3-1.2); BLOOD UREA NITROGEN 20 MG/DL (9-23); CALCIUM LEVEL 10.6 MG/DL (8.5-10.1); CARBON DIOXIDE LEVEL 25 MMOL/L (20-31); CHLORIDE LEVEL 108 MMOL/L (98-107); CREATININE FOR GFR 0.76 MG/DL (0.70-1.30); GLOMERULAR FILTRATION RATE > 60.0 (>60); GLUCOSE, FASTING 98 MG/DL (60-100); POTASSIUM SERUM 4.2 MMOL/L (3.5-5.1); PTH INTACT 252.8 PG/ML (18.5-88.0); SODIUM LEVEL 140 MMOL/L (136-145); TOTAL PROTEIN 5.8 G/DL (5.7-8.2); VITAMIN B12 LEVEL 401 PG/ML (211-911)
== END ==
LOC: M PLALAB 15:18
PROVIDERS: ATTEND Family Medicine
DX: E55.9 Vitamin D deficiency, unspecified (principal); I50.20 Unspecified systolic (congestive) heart failure; D50.9 Iron deficiency anemia, unspecified; K90.49 Malabsorption due to intolerance, not elsewhere classified

== ENCOUNTER → 2023-11-06 | Outpatient (CLI) | payer MEDICARE ==
[2023-11-06 15:22] LABS: BASO % 0.6 % (0.0-1.0); EOS # 0.3 10^3/uL (0.0-0.5); EOS % 6.4 % (0.0-3.0); HEMATOCRIT 51.4 % (42.0-52.0); HEMOGLOBIN 17.4 g/dl (13.5-17.5); LYMPH # 0.8 10^3/uL (1.5-5.0); LYMPH % 17.2 % (24.0-44.0); MEAN CORPUSCULAR HEMOGLOBIN 30.5 pg (27.0-33.0); MEAN CORPUSCULAR HGB CONC 33.9 g/dl (32.0-36.5); MONO # 0.3 10^3/uL (0.0-0.8); MONO % 6.6 % (2.0-8.0); NEUTROPHILS # 3.2 10^3/uL (1.5-8.5); PLATELET COUNT, AUTOMATED 122 10^3/uL (150-450); RED BLOOD COUNT 5.71 10^6/uL (4.30-6.10); WHITE BLOOD COUNT 4.7 10^3/uL (4.0-10.0)
[2023-11-06 15:44] LABS: ALBUMIN 3.4 G/DL (3.2-5.2); ALKALINE PHOSPHATASE 63 U/L (46-116); ALT/SGPT 32 U/L (7.0-40); AST/SGOT 21 U/L (<34); BILIRUBIN,TOTAL 1.9 MG/DL (0.3-1.2); BLOOD UREA NITROGEN 14 MG/DL (9-23); CALCIUM LEVEL 10.2 MG/DL (8.5-10.1); CARBON DIOXIDE LEVEL 27 MMOL/L (20-31); CHLORIDE LEVEL 109 MMOL/L (98-107); CREATININE FOR GFR 0.88 MG/DL (0.70-1.30); GLOMERULAR FILTRATION RATE > 60.0 (>60); GLUCOSE, FASTING 76 MG/DL (60-100); POTASSIUM SERUM 4.3 MMOL/L (3.5-5.1); SODIUM LEVEL 142 MMOL/L (136-145); TOTAL PROTEIN 5.7 G/DL (5.7-8.2)
[2023-11-06 15:45] LABS: PTH INTACT 296.8 PG/ML (18.5-88.0)
[2023-11-06 15:47] LABS: VITAMIN B12 LEVEL 522 PG/ML (211-911)
== END ==
LOC: M PLALAB 14:18
PROVIDERS: ATTEND Family Medicine
DX: I50.20 Unspecified systolic (congestive) heart failure (principal); K90.49 Malabsorption due to intolerance, not elsewhere classified; D50.9 Iron deficiency anemia, unspecified; E55.9 Vitamin D deficiency, unspecified

== ENCOUNTER → 2023-11-06 | Outpatient (REF) | payer MEDICARE, MEDICAID | LOC: M SFHCPLAZ 14:10 | PROVIDERS: ATTEND Family Medicine | DX: I50.20 Unspecified systolic (congestive) heart failure (principal); D50.9 Iron deficiency anemia, unspecified; E55.9 Vitamin D deficiency, unspecified; K90.49 Malabsorption due to intolerance, not elsewhere classified ==

== ENCOUNTER → 2024-01-21 | Outpatient (CLI) | payer MEDICARE | LOC: M RAD 08:49 | PROVIDERS: ATTEND Family Medicine | DX: K72.10 Chronic hepatic failure without coma (principal); K80.20 Calculus of gallbladder without cholecystitis without obstruction ==

== ENCOUNTER → 2024-03-17 | Outpatient (CLI) | payer MEDICAID, MEDICARE ==
[2024-03-17 14:51] LABS: INR 1.2; PARTIAL THROMBOPLASTIN TIME 34.5 SECONDS (24.8-34.2); PROTHROMBIN TIME 14.9 SECONDS (12.5-14.5)
[2024-03-17 15:45] LABS: BASO % 0.6 % (0.0-1.0); EOS # 0.3 10^3/uL (0.0-0.5); EOS % 5.7 % (0.0-3.0); HEMATOCRIT 50.3 % (42.0-52.0); HEMOGLOBIN 17.5 g/dl (13.5-17.5); LYMPH # 0.8 10^3/uL (1.5-5.0); LYMPH % 14.9 % (24.0-44.0); MEAN CORPUSCULAR HGB CONC 34.8 g/dl (32.0-36.5); MEAN CORPUSCULAR VOLUME 86.3 fl (80.0-96.0); MONO # 0.4 10^3/uL (0.0-0.8); MONO % 7.3 % (2.0-8.0); NEUTROPHILS # 3.9 10^3/uL (1.5-8.5); NEUTROPHILS % 71.1 % (36.0-66.0); PLATELET COUNT, AUTOMATED 140 10^3/uL (150-450); RED BLOOD COUNT 5.83 10^6/uL (4.30-6.10); WHITE BLOOD COUNT 5.5 10^3/uL (4.0-10.0)
[2024-03-17 17:27] LABS: ALBUMIN 3.5 G/DL (3.2-5.2); ALKALINE PHOSPHATASE 70 U/L (46-116); ALT/SGPT 29 U/L (7.0-40); AST/SGOT 25 U/L (<34); BILIRUBIN,TOTAL 2.7 MG/DL (0.3-1.2); BLOOD UREA NITROGEN 14 MG/DL (9-23); CALCIUM LEVEL 9.9 MG/DL (8.5-10.1); CARBON DIOXIDE LEVEL 23 MMOL/L (20-31); CHLORIDE LEVEL 110 MMOL/L (98-107); FERRITIN 23.9 NG/ML (10.5-307.3); GLOMERULAR FILTRATION RATE > 60.0 (>60); GLUCOSE, FASTING 67 MG/DL (60-100); PTH INTACT 319.3 PG/ML (18.5-88.0); SODIUM LEVEL 138 MMOL/L (136-145); TOTAL PROTEIN 5.9 G/DL (5.7-8.2)
[2024-03-19 09:03] LABS: T P ELECTROPHORESIS SO 5.9 g/dL (6.1-8.1)
== END ==
LOC: M PLALAB 13:35
PROVIDERS: ATTEND Family Medicine
DX: E21.2 Other hyperparathyroidism (principal); I50.20 Unspecified systolic (congestive) heart failure; E55.9 Vitamin D deficiency, unspecified; D50.9 Iron deficiency anemia, unspecified; K72.10 Chronic hepatic failure without coma; K90.49 Malabsorption due to intolerance, not elsewhere classified; R93.2 Abnormal findings on diagnostic imaging of liver and biliary tract

== ENCOUNTER → 2024-07-23 | Outpatient (CLI) | payer MEDICAID, MEDICARE ==
[2024-07-23 17:04] LABS: BASO % 0.5 % (0.0-1.0); EOS # 0.2 10^3/uL (0.0-0.5); EOS % 3.5 % (0.0-3.0); HEMATOCRIT 52.1 % (42.0-52.0); HEMOGLOBIN 17.8 g/dl (13.5-17.5); LYMPH # 0.9 10^3/uL (1.5-5.0); LYMPH % 14.6 % (24.0-44.0); MEAN CORPUSCULAR HEMOGLOBIN 29.4 pg (27.0-33.0); MEAN CORPUSCULAR HGB CONC 34.2 g/dl (32.0-36.5); MONO # 0.4 10^3/uL (0.0-0.8); MONO % 6.9 % (2.0-8.0); NEUTROPHILS # 4.4 10^3/uL (1.5-8.5); NEUTROPHILS % 74.2 % (36.0-66.0); PLATELET COUNT, AUTOMATED 163 10^3/uL (150-450); RED BLOOD COUNT 6.06 10^6/uL (4.30-6.10); WHITE BLOOD COUNT 5.9 10^3/uL (4.0-10.0)
[2024-07-23 17:21] LABS: INR 1.11; PARTIAL THROMBOPLASTIN TIME 35.6 SECONDS (24.8-34.2); PROTHROMBIN TIME 14.6 SECONDS (12.5-14.5)
[2024-07-23 17:42] LABS: ALBUMIN 3.6 G/DL (3.2-5.2); ALKALINE PHOSPHATASE 69 U/L (40-129); ALT/SGPT 28 U/L (7.0-40); AST/SGOT 24 U/L (<34); BILIRUBIN,DIRECT 0.7 MG/DL (<0.4); BILIRUBIN,TOTAL 2.2 MG/DL (0.3-1.2); BLOOD UREA NITROGEN 17 MG/DL (9-23); CALCIUM LEVEL 9.6 MG/DL (8.5-10.1); CARBON DIOXIDE LEVEL 23 MMOL/L (20-31); CHLORIDE LEVEL 107 MMOL/L (98-107); GLOMERULAR FILTRATION RATE > 60.0 (>60); GLUCOSE, FASTING 80 MG/DL (60-100); MAGNESIUM LEVEL 2.1 MG/DL (1.8-2.4); PTH INTACT 331.7 PG/ML (18.5-88.0); SODIUM LEVEL 140 MMOL/L (136-145); TOTAL PROTEIN 6.5 G/DL (5.7-8.2)
[2024-07-23 17:44] LABS: FERRITIN 16.3 NG/ML (10.5-307.3)
== END ==
LOC: M PLALAB 15:38
PROVIDERS: ATTEND Family Medicine
DX: D50.9 Iron deficiency anemia, unspecified (principal); K72.10 Chronic hepatic failure without coma; E55.9 Vitamin D deficiency, unspecified; I50.20 Unspecified systolic (congestive) heart failure

== ENCOUNTER → 2024-08-26 | Outpatient (CLI) | payer MEDICAID, MEDICARE | LOC: M SLEEP HO 11:14 | PROVIDERS: ATTEND Family Medicine | DX: G47.33 Obstructive sleep apnea (adult) (pediatric) (principal); R09.02 Hypoxemia ==

== ENCOUNTER → 2024-12-01 | Outpatient (CLI) | payer MEDICAID, MEDICARE ==
[2024-12-01 10:22] LABS: INR 1.05
[2024-12-01 10:52] LABS: BASO # 0.0 10^3/uL (0.0-0.2); BASO % 0.8 % (0.0-1.0); EOS # 0.2 10^3/uL (0.0-0.5); EOS % 4.0 % (0.0-3.0); LYMPH # 0.8 10^3/uL (1.5-5.0); LYMPH % 16.0 % (24.0-44.0); MONO # 0.4 10^3/uL (0.0-0.8); MONO % 7.1 % (2.0-8.0); NEUTROPHILS # 3.6 10^3/uL (1.5-8.5); NEUTROPHILS % 71.7 % (36.0-66.0); PLATELET COUNT, AUTOMATED 173 10^3/uL (150-450)
[2024-12-01 10:56] LABS: ALT/SGPT 22 U/L (7.0-40); AST/SGOT 27 U/L (<34); CALCIUM LEVEL 9.7 MG/DL (8.5-10.1); CARBON DIOXIDE LEVEL 29 MMOL/L (20-31); CHLORIDE LEVEL 109 MMOL/L (98-107); CREATININE FOR GFR 0.92 MG/DL (0.70-1.30); GLOMERULAR FILTRATION RATE > 90.0 (>60); MAGNESIUM LEVEL 1.9 MG/DL (1.8-2.4); POTASSIUM SERUM 4.7 MMOL/L (3.5-5.1); PTH INTACT 251.8 PG/ML (18.5-88.0); SODIUM LEVEL 145 MMOL/L (136-145)
[2024-12-01 10:58] LABS: VITAMIN B12 LEVEL 451 PG/ML (211-911)
[2024-12-05 13:08] LABS: NICOTINAMIDE 26 ng/mL (see note); NICOTINIC ACID < 20 ng/mL (see note); VITAMIN B2 (RIBOFLAVIN) 8.8 nmol/L (6.2-39.0)
[2024-12-06 18:03] LABS: VITAMIN B1 LEVEL WHOLE BLOOD 125 nmol/L (78-185)
[2024-12-07 08:15] LABS: VITAMIN B6,PYRIDOXAL PHOSPHATE 3.8 ng/mL (2.1-21.7)
== END ==
LOC: M PLALAB 07:54
PROVIDERS: ATTEND Family Medicine
DX: K90.49 Malabsorption due to intolerance, not elsewhere classified (principal)

== ENCOUNTER → 2024-12-17 | Outpatient (CLI) | payer MEDICARE | LOC: M RAD 08:46 | PROVIDERS: ATTEND Family Medicine | DX: K72.10 Chronic hepatic failure without coma (principal); R16.1 Splenomegaly, not elsewhere classified ==

== ENCOUNTER 2024-12-21 14:13 | Outpatient (CLI) | payer MEDICARE ==
[~2024-12-21] VITALS: Ht 190.5 cm; Wt 102.3 kg
[~2024-12-21 14:13] MED LIST changes: +ALBUTEROL SULFATE 2.5 MG/0.5 ML INH CONCENTRATE NEB SOLN INH PRN; +EPINEPHrine INJ 1 MG/ML 1ML AMP IM PRN; +diphenhydrAMINE 50 MG/ML VIAL IV PRN
[2024-12-21 14:20] VITALS: BP 129/61; O2SAT 95
[2024-12-21] MEDS: FERRIC CARBOXYMALTOSE 750 MG (VIAL MATE) IN 100ML NS IV ONE (14:23)
== END 2024-12-21 14:50 | disposition home or self-care (01) ==
LOC: M INFU 14:13
PROVIDERS: ATTEND Family Medicine
DX: D50.9 Iron deficiency anemia, unspecified (principal); Z88.2 Allergy status to sulfonamides; Z88.8 Allergy status to other drugs, medicaments and biological substances
CPT/HCPCS: 96365; J1439

== ENCOUNTER → 2025-02-17 | Outpatient (CLI) | payer MEDICAID, MEDICARE ==
[~2025-02-17] MED LIST changes: -ALBUTEROL SULFATE 2.5 MG/0.5 ML INH CONCENTRATE NEB SOLN INH PRN; -EPINEPHrine INJ 1 MG/ML 1ML AMP IM PRN; -diphenhydrAMINE 50 MG/ML VIAL IV PRN
[2025-02-17 10:17] LABS: BASO # 0.0 10^3/uL (0.0-0.2); BASO % 0.7 % (0.0-1.0); EOS # 0.3 10^3/uL (0.0-0.5); EOS % 7.0 % (0.0-3.0); LYMPH # 0.8 10^3/uL (1.5-5.0); LYMPH % 17.9 % (24.0-44.0); MONO # 0.3 10^3/uL (0.0-0.8); MONO % 7.0 % (2.0-8.0); NEUTROPHILS # 2.9 10^3/uL (1.5-8.5); NEUTROPHILS % 67.2 % (36.0-66.0); PLATELET COUNT, AUTOMATED 142 10^3/uL (150-450)
[2025-02-17 10:28] LABS: INR 1.09
[2025-02-17 12:52] LABS: ALT/SGPT 20 U/L (7.0-40); AST/SGOT 20 U/L (<34); CALCIUM LEVEL 9.6 MG/DL (8.5-10.1); CARBON DIOXIDE LEVEL 24 MMOL/L (20-31); CHLORIDE LEVEL 109 MMOL/L (98-107); CREATININE FOR GFR 0.89 MG/DL (0.70-1.30); GLOMERULAR FILTRATION RATE > 90.0 (>60); MAGNESIUM LEVEL 1.8 MG/DL (1.8-2.4); PHOSPHORUS LEVEL 2.6 MG/DL (2.5-4.9); POTASSIUM SERUM 4.3 MMOL/L (3.5-5.1); PTH INTACT 287.9 PG/ML (18.5-88.0); SODIUM LEVEL 141 MMOL/L (136-145); TOTAL 25(OH) VITAMIN D 17.4 NG/ML (20.0-100.0)
== END ==
LOC: M PLALAB 09:17
PROVIDERS: ATTEND Family Medicine
DX: I50.20 Unspecified systolic (congestive) heart failure (principal)

== ENCOUNTER → 2025-02-21 | Outpatient (CLI) | payer MEDICARE ==
[2025-02-21 09:59] LABS: BASO # 0.0 10^3/uL (0.0-0.2); BASO % 0.7 % (0.0-1.0); EOS # 0.3 10^3/uL (0.0-0.5); EOS % 6.4 % (0.0-3.0); LYMPH # 0.7 10^3/uL (1.5-5.0); LYMPH % 17.0 % (24.0-44.0); MONO # 0.3 10^3/uL (0.0-0.8); MONO % 5.9 % (2.0-8.0); NEUTROPHILS # 3.0 10^3/uL (1.5-8.5); NEUTROPHILS % 69.8 % (36.0-66.0); PLATELET COUNT, AUTOMATED 130 10^3/uL (150-450)
[2025-02-21 10:12] LABS: INR 1.14
== END ==
LOC: M PLALAB 08:21
PROVIDERS: ATTEND Family Medicine
DX: K72.10 Chronic hepatic failure without coma (principal); D50.9 Iron deficiency anemia, unspecified

== ENCOUNTER → 2025-02-25 | Outpatient (CLI) | payer MEDICARE ==
[2025-02-25 10:25] LABS: BASO # 0.0 10^3/uL (0.0-0.2); BASO % 1.1 % (0.0-1.0); EOS # 0.3 10^3/uL (0.0-0.5); EOS % 6.9 % (0.0-3.0); LYMPH # 0.7 10^3/uL (1.5-5.0); LYMPH % 18.7 % (24.0-44.0); MONO # 0.3 10^3/uL (0.0-0.8); MONO % 6.9 % (2.0-8.0); NEUTROPHILS # 2.5 10^3/uL (1.5-8.5); NEUTROPHILS % 66.4 % (36.0-66.0); PLATELET COUNT, AUTOMATED 125 10^3/uL (150-450)
[2025-02-25 10:32] LABS: INR 1.87
== END ==
LOC: M PLALAB 09:20
PROVIDERS: ATTEND Family Medicine
DX: I82.532 Chronic embolism and thrombosis of left popliteal vein (principal)

== ENCOUNTER 2025-03-04 14:44 | Outpatient (CLI) | payer MEDICARE ==
[~2025-03-04] VITALS: Ht 190.5 cm; Wt 100.0 kg
[~2025-03-04 14:44] MED LIST changes: +ALBUTEROL SULFATE 2.5 MG/0.5 ML INH CONCENTRATE NEB SOLN INH PRN; +EPINEPHrine INJ 1 MG/ML 1ML AMP IM PRN; +diphenhydrAMINE 50 MG/ML VIAL IV PRN
[2025-03-04 14:50] VITALS: BP 140/66; O2SAT 98
[2025-03-04] MEDS: FERRIC CARBOXYMALTOSE 750 MG (VIAL MATE) IN 100ML NS IV ONE (15:09)
[2025-03-04 15:30] VITALS: BP 142/70; O2SAT 100
== END 2025-03-04 15:35 ==
LOC: M INFU 14:44
PROVIDERS: ATTEND Family Medicine
DX: D50.9 Iron deficiency anemia, unspecified (principal); Z88.2 Allergy status to sulfonamides; Z88.8 Allergy status to other drugs, medicaments and biological substances; K72.10 Chronic hepatic failure without coma; I82.532 Chronic embolism and thrombosis of left popliteal vein
CPT/HCPCS: 36415; 82105; 82140; 85025; 85610; 96365; J1439

== ENCOUNTER → 2025-03-04 | Outpatient (CLI) | payer MEDICARE ==
[2025-03-04 11:01] LABS: BASO # 0.0 10^3/uL (0.0-0.2); BASO % 0.9 % (0.0-1.0); EOS # 0.3 10^3/uL (0.0-0.5); EOS % 6.5 % (0.0-3.0); LYMPH # 0.8 10^3/uL (1.5-5.0); LYMPH % 19.0 % (24.0-44.0); MONO # 0.3 10^3/uL (0.0-0.8); MONO % 6.7 % (2.0-8.0); NEUTROPHILS # 2.9 10^3/uL (1.5-8.5); NEUTROPHILS % 66.7 % (36.0-66.0); PLATELET COUNT, AUTOMATED 141 10^3/uL (150-450)
[2025-03-04 11:17] LABS: INR 2.29
== END ==
LOC: M LAB 09:30
PROVIDERS: ATTEND Family Medicine
DX: K72.10 Chronic hepatic failure without coma (principal); I82.532 Chronic embolism and thrombosis of left popliteal vein

== ENCOUNTER → 2025-03-28 | Outpatient (CLI) | payer MEDICARE, MEDICAID ==
[~2025-03-28] MED LIST changes: -ALBUTEROL SULFATE 2.5 MG/0.5 ML INH CONCENTRATE NEB SOLN INH PRN; -EPINEPHrine INJ 1 MG/ML 1ML AMP IM PRN; -diphenhydrAMINE 50 MG/ML VIAL IV PRN
[2025-03-28 13:54] LABS: BASO # 0.0 10^3/uL (0.0-0.2); BASO % 0.9 % (0.0-1.0); EOS # 0.3 10^3/uL (0.0-0.5); EOS % 6.8 % (0.0-3.0); LYMPH # 1.0 10^3/uL (1.5-5.0); LYMPH % 20.7 % (24.0-44.0); MONO # 0.3 10^3/uL (0.0-0.8); MONO % 6.8 % (2.0-8.0); NEUTROPHILS # 3.0 10^3/uL (1.5-8.5); NEUTROPHILS % 64.8 % (36.0-66.0); PLATELET COUNT, AUTOMATED 152 10^3/uL (150-450)
[2025-03-28 13:56] LABS: ALT/SGPT 27 U/L (7.0-40); AST/SGOT 26 U/L (<34); CALCIUM LEVEL 8.6 MG/DL (8.5-10.1); CARBON DIOXIDE LEVEL 23 MMOL/L (20-31); CHLORIDE LEVEL 111 MMOL/L (98-107); CREATININE FOR GFR 0.80 MG/DL (0.70-1.30); GLOMERULAR FILTRATION RATE > 90.0 (>60); POTASSIUM SERUM 4.5 MMOL/L (3.5-5.1); SODIUM LEVEL 142 MMOL/L (136-145)
== END ==
LOC: M PLALAB 10:09
PROVIDERS: ATTEND Family Medicine
DX: I82.532 Chronic embolism and thrombosis of left popliteal vein (principal); D50.9 Iron deficiency anemia, unspecified; I50.20 Unspecified systolic (congestive) heart failure

== ENCOUNTER 2025-04-18 13:05 | Outpatient (CLI) | payer MEDICAID, MEDICARE ==
[~2025-04-18 13:05] MED LIST changes: +ALBUTEROL SULFATE 2.5 MG/0.5 ML INH CONCENTRATE NEB SOLN INH PRN; +EPINEPHrine INJ 1 MG/ML 1ML AMP IM PRN; +diphenhydrAMINE 50 MG/ML VIAL IV PRN
[2025-04-18] MEDS: FERRIC CARBOXYMALTOSE 750 MG (VIAL MATE) IN 100ML NS IV ONE (13:53)
[2025-04-18 14:17] VITALS: BP 125/71; O2SAT 93
== END 2025-04-18 14:20 | disposition home or self-care (01) ==
LOC: M INFU 13:05
PROVIDERS: ATTEND Family Medicine
DX: D50.9 Iron deficiency anemia, unspecified (principal); Z88.2 Allergy status to sulfonamides; Z88.8 Allergy status to other drugs, medicaments and biological substances
CPT/HCPCS: 96365; J1439